=== PATIENT | male | born 1960 | race Caucasian/White ===

== ENCOUNTER 2018-12-04 00:38 | Inpatient (IN) | payer MEDICARE ==
[~2018-12-04] VITALS: Ht 170.2 cm; Wt 106.3 kg
[~2018-12-04 00:38] MED LIST: ALLOPURINOL300 MG PO; ATIVAN1 MG PO; AZITHROMYCIN250 MG PO; BACLOFEN20 MG PO; HYDROCHLOROTHIA50 MG PO; HYDROCODON-ACE1 EAC8 PO; IBUPROFEN800 MG PO; LORAZEPAM1 MG PO; METOPROLOL SUC100 MG PO; MORPHINE SULFAT15 M1 PO; PHOSPHA 250 NE250 MG PO; PREDNISONE20 MG PO; PROAIR HFA8.5 GM INH; QUETIAPINE FUM300 MG PO; TRAZODONE HCL100 MG PO; VICODIN 5-3001 EACH PO
--- OUTSIDE RECORDS SUMMARY | 2018-12-04 00:40 | XMS ---
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 Bakari VISIT COUNT (12 MO.) Sabino Booth TOTAL 1 NOTE: Visits indicate total known visits. ED/UCC VISIT TRACKING (12 MO.) 12/04/2018 00:[address] [facility] OR TYPE: Emergency COMPLAINT: - SOB INPATIENT VISIT TRACKING (12 MO.) No inpatient visits to display in this time frame [email or web address]
[2018-12-04] MEDS ORDERED: VITAMIN D31000 UNIT PO (00:48)
[2018-12-04] MEDS ORDERED: GABAPENTIN300 MG PO (01:44)
[2018-12-04] MEDS ORDERED: VENTOLIN HFA18 GM INH (01:48)
--- NOTE | 2018-12-04 03:27 | NUR ---
PT ARRIVES TO ICU ROOM 130, STANDS AND TRANSFERS SELF TO BED FROM [facility], STEADY ON FEET. RESP LABORED, RR 24, SPO2 85% ON 3L, TURNED UP TO 4L AND CFG434%. PT ANXIOUS, REQUESTING ADDITIONAL ATIVAN. DENIES PAIN. REQUESTS NICOTINE PATCH.
--- NOTE | 2018-12-04 03:43 | NUR ---
RT IN TO DO ADARSH MCKENNA.
--- NOTE | 2018-12-04 04:02 | NUR ---
PT VERY ANXIOUS WHEN STAFF IN ROOM, REQUESTING ATIVAN. WHEN STAFF LEAVE HE IS ABLE TO LIE DOWN IN BED AND RELAX A BIT.
--- NOTE | 2018-12-04 04:38 | NUR ---
CALL TO DR CALVO, ORDER GIVEN FOR ATIVAN 1 MG PO AND PTS REGULAR TRAZADONE AND SEROQUEL. PT CONT TO BE RESTLESS AND SITTING AT EDGE OF BED ROCKING BACK AND FORTH.
--- NOTE | 2018-12-04 05:15 | NUR ---
PT GIVEN HIS TRAZADNE, SEROQUEL AND ATIVAN. LYING BACK IN BED NOW, APPEARS MORE CALM. IS DIAPHORETIC, MONITOR LEADS NOT STICKING. WANTS O2 TURNED UP, SPO2 95% NC/5L, O2 UP O 6L. RESP LESS LABORED NOW THAT PT IS RELAXING. WAS ABLE TO VOID 400 ML INTO URINAL.
--- NOTE | 2018-12-04 07:00 | NUR ---
PT HAS HAD INCREASING ANXIETY, SITTING UP AT BEDSIDE THEN TO CHAIR THEN BACK, ROCKING BACK AND FORTH. UNABLE TO KEEP BP CUFF ON, SKIN IS DIAPHORETIC AND LEADS NOT STICKING TO SKIN, PULLING OFF SPO2 MONITOR AND O2. PT ENCOURAGED TO TRY TO RELAX AND LIE BACK IN BED AND FOCUS ON BREATHING BUT UNABLE TO LIE BACK FOR MORE THAN 10 SECONDS. LUNGS HAVE EXP WHEEZES THROUGHOUT. RT CALLED TO COME AND DO NEB TX. IV DILAUDID WAS GIVEN AND PT INSTANTLY STATES "OH THAT HIT THE SPOT" AFTER DILAUDID GIVEN PT WAS ABLE TO LIE BACK IN BED AND REST WITH EYES CLOSED. RESP REMAINED VERY LABORED WITH RETRACTIONS, RR 32. O2 REQUIREMENTS HAVE INCREASED FROM 3L/NC ON ARRIVAL TO UNIT NOW TO 10L OXYMASK SPO2 92%. CALL TO DR CALVO TO UPDATE, STATES HE WILL BE IN TO SEE PT SOON.
--- NOTE | 2018-12-04 07:53 | EKG ---
[facility] [address] [facility] [place] [address] Signed Normal sinus rhythm Incomplete right bundle branch block Nonspecific ST abnormality Abnormal ECG When compared with ECG of 21-JUN-2016 13:10, premature ventricular complexes are no longer present Incomplete right bundle branch block is now present Confirmed by VIKTORIYA CALVO MD ([id number]) on 12/04/2018 7:53:39 AM Electronically Signed By: VIKTORIYA CALVO MD 12/04/18 0753 PATIENT NAME: DOREEN TELLO Electrocardiogram DATE OF : 62 PHYSICIAN: VIKTORIYA CALVO MD REPORT #: [id number] REPORT IS CONFIDENTIAL AND NOT TO BE RELEASED WITHOUT AUTHORIZATION
--- NOTE | 2018-12-04 08:01 | NUR ---
PT STATES EFFECTS OF DILAUDID WEARING OFF, BELIEVES HE IS GOING THROUGH WITHDRAWAL FROM NOT HAVING HIS CHRONIC PAIN MEDS. STARTING TO HAVE INCREASED ANXIETY AND RESTLESSNESS AGAIN, PERIODICALLY PULLING O2 OFF, TRYING TO CLIMB OUT OF BED THEN LAYING BACK AGAIN TO REST WITH EYES CLOSED. STATES NEB TX DID HELP A BIT, SATS DID IMPROVE AFTER NEB TX SLIGHTLY.
--- NOTE | 2018-12-04 08:32 | NUR ---
IV SITE INTACT, NO REDNESS OR SWELLING NOTED, FLUSHES EASILY. PT DENIES NAUSEA AND SOB AT THIS TIME. PT REPORTS SEVERE ANXIETY. PT REQUESTS "THE GOOD DRUGS" PT STATES "IF I DON'T GET SOME DRUGS I'M GOING TO HAVE TO LEAVE". PT NOT ABLE TO KEEP SATS UP WITHOUT SUPPLIMENTAL O2, FREQUENTLY TAKES OFF OXYMASK. PT IS CURRENTLY SITTING UP AT THE SIDE OF THE BED ROCKING BACK AND FORTH, HAS A DIFFICULT TIME FOLLOWING DIRECTION TO KEEP OXYMASK ON.
--- NOTE | 2018-12-04 08:50 | NUR ---
IN ROOM TO EXAMINE PT AT THIS TIME. PT HAS NASAL CANULA IN PLACE WITH 4L O2, SAT IS 87%. PT REPORTS DIFFICULTY/INABILITY TO SURYA OXYMASK DUE TO ANXIETY. PT REPORTS "ONLY 2 MG ATIVAN WORKS FOR ME, IF YOU JUST GIVE ME 1 MG IT MAKES ME MEAN".
--- NOTE | 2018-12-04 11:55 | NUR ---
PT UP TO THE BEDSIDE COMMODE, IMPULSIVE WHEN GETTING OUT OF BED. PT HAS DIFFICULTY FOLLOWING DIRECTIONS. PT IS ONE PERSON ASSIST TO BEDSIDE COMMODE. PT ABLE TO VOID AND HAVE A BM. PT THEN BACK TO BED WITH BIPAP REPLACED. PT ACCIDENTALLY PULLED IV SITE IN RT HAND. NEW IV PLACED IN RT AC, SOME OF CATH IS EXPOSED PT HAS VALVES BLOCKING ADVANCEMENT, BLOOD RETURN EASILY OBTAINED, FLUSHES EASILY. PT DENIES PAIN AT THE SITE.
--- NOTE | 2018-12-04 13:41 | NUR ---
PT RESTING WITH BI-PAP. JOSÉ ELDER STATED SHE PREFERRED I NOT WAKE HIM. WILL CONTINUE TO FOLLOW NEEDE
--- NOTE | 2018-12-04 13:43 | NUR ---
PT MOVED TO ROOM 128 FOR CLOSER SUPERVISION.
--- NOTE | 2018-12-04 15:05 | NUR ---
PT UP TO THE BEDSIDE COMMODE TO HAVE A BM. PT OFF BIPAP FOR THIS, ON NC 4L 02, SATS DOWN TO 77% WITH PHYSICAL EXERTION, MOSTLY IN THE MID 80%'S.
--- NOTE | 2018-12-04 15:15 | NUR ---
PT ASSISTED TWO PERSON BACK TO BED. PT REFUSING BIPAP, RESISTS WEARING ANY FORM OF O2. EVENTUALLY CONVINCED PT TO WEAR 15 L OXYMASK. PT HAS DIFFICULTY REMEMBERING WHY THIS IS NEEDED.
--- NOTE | 2018-12-04 15:33 | NUR ---
PT REFUSING TO WEAR BIPAP AT THIS TIME. PT HAVING COUGHING FIT, ATTEMPTING TO EXPECTORATE. PT STATES "I CAN'T WEAR THAT IF I'M COUGHING". PT ABLE TO SURYA SIPS OF LIQUIDS. SURYA OXYMASK AT TIMES WITH 15 L 02, AT TIMES TAKES OFF AND STATES "WHAT IS THIS THING". PT NOT ORIENTED TO PLACE, EVENT OR FOLLOWING DIRECTIONS. PT IS ORIENTED TO NAME AND REQUESTING MORE ANXIETY MEDICATION.
--- NOTE | 2018-12-04 15:57 | NUR ---
UPDATED ON PT STATUS OF NON-TOLERANCE OF BIPAP AND ANXIETY. ORDER GIVEN FOR CT OF CHEST, AND SWITCH TO VAPO-THERM.
--- NOTE | 2018-12-04 16:35 | NUR ---
PT LEFT CCU TO GO TO IMAGING DEPARTMENT FOR CT OF CHEST. NURSE JERROD WENT WITH PT. PT SURYA 6L VIA OXYMASK, O2 SATS ARE 92-95%.
--- NOTE | 2018-12-04 16:58 | NUR ---
PT BACK TO ROOM FROM IMAGING DEPARTMENT.
--- NOTE | 2018-12-04 17:29 | NUR ---
CALLED TO UPDATE ON FAILURE OF CONTRAST FOR CT. IV SITE IN PT UPPER LEFT ARM INFILTRATED. ORDER GIVEN TO PUT IN A PICC LINE CONSULT FOR TODAY, OR TO ATTEMPT AN IV SITE IN PT LOWER LEG.
--- NOTE | 2018-12-04 17:43 | NUR ---
RECIEVED MESSAGE FROM STAFF VOICING CONCERN ABOUT THE PT MOTHER THE PT IS HER CAREGIVER. I CALLED HER NUMBER AND LEFT A MESSAGE NO ONE ANSWERED. PT MOTHER CALLED BACK IN A FEW MINUTES, STATING THAT SHE IS SAFE AND CAPABLE OF GOING TO BATHROOM, GETTING MEALS FOR HERSELF, KEEPING HERSELF WARM WHILE DOREEN IS HERE IN THE HOSPITAL. SHE STATES THAT SHE HAS SOMEONE TO CALL IF SHE NEEDS HELP AND THAT SHE IS SAFE WHILE DOREEN IS GONE. INFORMED NURSING STAFF AND QUALITY CONTROL DIRECTOR OF THIS.
--- NOTE | 2018-12-04 18:37 | NUR ---
PT GIVEN NEB TREATMENT PER REQUEST. PT CONFUSION NOT CHANGING, PT IS FOLLOWING MOST COMMANDS.
--- NOTE | 2018-12-04 18:40 | NUR ---
PT UP TO BEDSIDE COMMODE ABLE TO VOID. TWO PERSON ASSIST TO BED.
--- NOTE | 2018-12-04 18:49 | NUR ---
LARGE ENOUGH IV ACCESS NOT OBTAINED, CALLED TO UPDATE, CHEST CT TO BE POSTPONED UNTIL TOMORROW WAITING FOR PICC LINE PLACEMENT.
--- NOTE | 2018-12-04 19:30 | NUR ---
PT RESTING IN BED WITH EYES CLOSED. RESP LABORED. SPO2 95% ON OXYMASK 7L.
--- NOTE | 2018-12-04 20:15 | NUR ---
PT AWAKENS, ASKING FOR MEDS, ATTEMPTING TO CLIMB OUT OF BED. REORIENTED PT, HE SEEMS FAIRLY ORIENTED AT THIS TIME ALTHOUGH HE IS FORGETFUL, NOT REMEMBERING THAT WE TOLD HIM HIS MOTHER HAS BEEN CONTACTED ALREADY, ETC. ASSESSMENT DONE. LUNGS WITH WHEEZE THROUGHOUT, RESP VERY LABORED ESPECIALLY NOW THAT PT IS AWAKE AND STARTING TO GET ANXIOUS, SITTING UP AND DOWN. TAKING OXYMASK OFF. AT ONE POINT SPO2 DOWN TO 70% ON ROOM AIR. RT IN AND DID NEB TX AND PLACED VAPOTHERM 30L, 60% FIO2 AND SPO2 UP TO 90%. RR 26, HR 90'S. HS MEDS GIVEN WITH PRN ATIVAN AND NORCO. AFTER TAKING MEDS PT RELAXES BACK IN BED AND IS RESTFUL. BED ALARM ON.
--- NOTE | 2018-12-04 21:25 | NUR ---
NEW IV STARTED IN LEFT FOREARM.
--- NOTE | 2018-12-04 21:27 | NUR ---
PT AWAKENS, ASKING FOR MEDS. ASSESSMENT DONE. LUNGS WITH WHEEZE THROUGHOUT, RESP VERY LABORED ESPECIALLY NOW THAT PT IS AWAKE AND STARTING TO GET ANXIOUS, SITTING UP AND DOWN MORE, TAKING OXYMASK OFF. HS MEDS GIVEN WITH PRN ATIVAN AND NORCO. RT IN TO DO NEB TX. AFTER TAKING MEDS PT RELAXES BACK IN BED TO REST. VAPOTHERM ALSO SET UP BY RT, 30L 60 FIO2 AND SPO2 UP TO 90%.RR 26. HR 90'S. BED ALARM ON.
--- NOTE | 2018-12-04 22:32 | NUR ---
PT RESTFUL, SPO2 92% CONT ON VAPOTHEM 30L 60%.
--- NOTE | 2018-12-04 23:30 | NUR ---
PT AWAKENS TO VOID AT BEDISDE. VERY ANXIOUS, TEARING O2 OFF. STATES HE CANNOT URINATE WHILE WEARING O2. WANTING TO GET UP AND WALK AROUND ROOM, PT CONVINCED TO LIE BACK IN BED AND TRY TO REST AND REPLACE VAPOTHERM. SATS HAD BEEN LOW WHILE RT IN TO DO NEB TX, TURNED FIO2 UP TO 70%.
--- NOTE | 2018-12-05 02:31 | NUR ---
PT HAS BEEN RESTFUL THE LAST 2 HOURS. WEARING VAPOTHERM SPO2 95%.
--- NOTE | 2018-12-05 04:09 | NUR ---
PT AWAKENS TO VOID AT BEDSIDE. HAS BEEN ABLE TO SLEEP FOR FOUR HOURS NOW. AFTER VOIDING AND GETTING REPOSITIONED BACK IN BED PT C/O FEELING SOB, SPO2 87-89% ON VAPOTHERM, RT CALLED TO COME DO ADARSH MCKENNA.
--- NOTE | 2018-12-05 08:47 | NUR ---
PATIENT APPEARS TO BE LESS CONFUSED COMPARED TO PREVIOUS DAY. PATEINT WAS ABLE TO AMBULATE WITH STAND BY ASSIST FROM BED TO THE CHAIR. PATIENT STATED HE NEEDED TO GET INTO CONTACT WITH HIS MOTHER STATING HE HADNT SPOKEN WITH HER IN A COUPLE DAYS. PATIENT WAS REMINDED HE SPOKE WITH HIS MOTHER LAST NIGHT, ALSO LET PATIENT KNOW SHE HAD BEEN CONTACTED BY THE DISCHARGE NURSE. PATIENT WAS EXTREMELY QUIET AND DID NOT APPEAR ANXIOUS YESTERDAY. AFTER REQUESTING ATIVAN PATIENT WAS TOLD IT WOULD BE A FEW MORE HOURS. PATIENT THEN STATED "THATS OKAY, I DONT FEEL LIKE I NEED IT RIGHT NOW ANYWAY". PATIENT DOES NOT APPEAR TO BE IN DISCOMFORT. PATIENT HAD NO OTHER COMPLAINTS AT THIS TIME.
--- NOTE | 2018-12-05 09:03 | NUR ---
PT SITTING UP IN CHAIR EATING BREAKFAST AT THIS TIME. PT ABLE TO FEED SELF. WATCHING TV WELL, IS ABLE TO USE CALL LIGHT AND TV REMOTE ON HIS OWN.
--- NOTE | 2018-12-05 09:29 | NUR ---
PATIENT FINISHED HIS ENTIRE BREAKFAST. AFTER BREAKFAST PATIENT ASKED FOR A TOOTHPICK. PATIENT INFORMED WE DONT HAVE ANY OFFERED A TOOTHBRUSH AND A HOT WASHCLOTH. PATIENT BRUSHED HIS TEETH AND WIPED HIS FACE OFF. PATIENT WAS VERY THANKFUL AND SAID HE FELT BETTER. PATIENT REQUESTED THE BLINDS BE PULLED DOWN AND THE CURTAIN DRAWN SO HE COULD TAKE A NAP. PATIENT CALLED HIS MOTHER TO SPEAK WITH HER BEFORE GOING TO SLEEP.
--- NOTE | 2018-12-05 11:16 | NUR ---
PATIENT CALLED TO NURSES STATION AT 1030 FOR HIS ATIVAN. PATIENT WAS CALM AND DID NOT APPEAR ANXIOUS AT THE TIME. AFTER RECIEVING MEDICATIONS PATIENT THEN STATED HE NEED TO URINATE. PATIENT VOIDED AND THEN INFORMED ME HE WOULD LIKE TO BE MOVED TO THE BED. PATIENT WAS ABLE TO STAND AND AMBULATE WITHOUT ASSISTANCE FROM THE CHAIR TO THE BED. PATIENT WAS ABLE TO POSITION HIMSELF ON THE BED TO A POSITION OF COMFORT. PATIENT HAD NO OTHER COMPLAINTS AT THIS TIME.
--- NOTE | 2018-12-05 11:19 | NUR ---
IN TO SEE PT. PT AWAKE AND ALERT, ABLE TO ANSWER QUESTIONS AND TAKE PART IN THE DISCUSSION OF HIS CARE PLAN. PT REPORTS ANXIETY HAS IMPORVED.
--- NOTE | 2018-12-05 16:52 | NUR ---
PATIENT COMPLAINING OF ANXIETY. STATED THAT THE ATIVAN DID NOT HELP THAT MUCH THIS TIME AND WANTED TO KNOW WHAT ELSE COULD BE DONE. PATIENT WAS GIVEN ALTERNATIVE STRATEGIES SUCH DEEP BREATHING AND MEDITATION. PATEINT WAS TAKEN FOR A WALK AND THEN GIVEN A SHOWER. AFTER SHOWER PATIENT RETURNED TO BED AND QUICKLY FELL ASLEEP. PATIENT APPEARS COMFORTABLE. PATEINT HAS REQUIRED FREQUENT REORIENTATION TO MEDICATION SCHEDULE. GETS AGITATED WHEN REMINDED MEDIATIONS WILL NOT BE GIVEN UNTIL THE EVENING. AT TIMES PATIENT IS DISORIENTED TO TIME OF DAY. PATIENT FREQUENTLY REQUESTS BLINDS TO BE CLOSED. ATTEMPTED TO KEEP BLIND OPEN BY ENCOURAGING PATIENT ABOUT THE POSITIVE EFFECTS OF SUNLIGHT. PATIENT STATES KEEPING THE BLINDS OPEN GIVE HIM A HEADACHE.
--- NOTE | 2018-12-05 17:14 | NUR ---
PT STATES HE WANTS TO LEAVE AMA. CALLED TO UPDATE. STATES HE WILL COME SEE THE PT IN 30 MINUTES. PT INFORMED THAT WILL BE HERE TO SEE HIM IN 30, PT AGREABLE TO WAIT TO TALK TO FOR 30 MIN.
--- NOTE | 2018-12-05 18:00 | NUR ---
IN TO VISIT WITH THE PT. ADJUSTING MEDICATIONS. PT AGREES TO STAY IN THE HOSPITAL.
--- NOTE | 2018-12-05 18:17 | NUR ---
PT GIVEN TRAZIDONE AND SERIQUIL. PT ABLE TO EAT SOME BITES OF DINNER.
--- NOTE | 2018-12-05 19:35 | NUR ---
REPORT RECEIVED FROM JOSÉ ELDER AND SN JESSIE. PT WAS SLEEPING AND IS NOW AWAKE REQUESTING HIS PAIN AND ANXIETY MEDICATIONS. 7L OXYMASK IN PLACE. 2MG IV ATIVAN ADMINISTERED. DISCUSSED WITH PT THAT I WOULD BRING IN ALL HIS OTHER MEDICATIONS AT 1999, PT IS AGREEABLE TO THIS. FRESH WATER PROVIDED. PT DENIES FURTHER REQUESTS AT THIS TIME.
--- NOTE | 2018-12-05 20:05 | NUR ---
SCHEDULED MEDICATIONS GIVEN PER ORDERS. PRN NORCO ADMINISTERED FOR 5/10 FOOT PAIN. PRN ROBITUSSIN GIVEN FOR COUGH. PRN NICOTINE LOZENGE GIVEN PER REQUEST. R.T. IN ROOM TO ASSESS AND ADMINSITERED SCHEDULED NEB. CALL LIGHT WITHIN REACH.
--- NOTE | 2018-12-05 20:30 | NUR ---
ASSESSMENT COMPLETED. PT IS ALERT/ORIENTED, THOUGH HE IS FORGETFUL AND REQUIRES RE-ORIENTATION AT TIMES. LUNGS CLEAR, DIM IN BASES, 7L O2 VIA OXYMASK IN PLACE. HR REGULAR, TACHY 100-110, SCHEDULED METOPROLOL GIVEN. BOWEL TONES ACTIVE, DENIES NAUSEA. SKIN APPEARS GROSSLY INTACT. IV SITES X3 PATENT AND SL, DRESSINGS INTACT. PT UP TO BATHROOM, NO ASSISTANCE REQUIRED. VOIDED X1. PT THEN AMBULATED AROUND ROOM WITHOUT ASSISTANCE. TOLERATED WELL, SPO2>90%, TACHYPNIC RR:24. PT NOW BACK IN BED, CALL LIGHT WITHIN REACH. FRESH WATER AND WARM BLANKETS PROVIDED PER REQUEST. DROPLET PRECAUTIONS IN PLACE.
--- NOTE | 2018-12-05 21:26 | NUR ---
PT CALLED TO REQUEST A NICOTINE LOZENGE, PROVIDED. PT ALSO ASKED FOR ATIVAN AND NORCO, EXPLAINED TO HIM THAT IT IS NOT TIME YET, PT IS UNDERSTANDING AND AGREEABLE AT THIS TIME. NO FURTHER REQUESTS, CALL LIGHT WITHIN REACH.
--- NOTE | 2018-12-06 | NUR ---
PT SLEEPING AT THIS TIME, NO APPARENT DISTRESS. RESPIRATIONS EVEN AND UNLABORED, RR:20, SPO2:94% ON 7L OXYMASK. HR:78. WILL ALLOW FOR REST AND CONTINUE TO MONITOR. CALL LIGHT WITHIN REACH.
--- NOTE | 2018-12-06 01:49 | NUR ---
PT AWOKE AND REQUESTED PAIN AND ANXIETY MEDICATION. 1 TAB NORCO AND 2MG IV ATIVAN ADMINISTERED. PT HAVING DIFFICULT TIME KEEPING OXYMASK ON, SWITCHED HIM TO 6L NC AT THIS TIME. LUNGS REMAIN CLEAR/DIM. HR REGULAR. BOWEL TONES ACTIVE, DENIES NAUSEA. CALL LIGHT WITHIN REACH.
--- NOTE | 2018-12-06 02:00 | NUR ---
PT CALLED AND REQUESTED COUGH MEDICINE AND A NICOTINE LOZENGE, BOTH PROVIDED. NO FURTHER REQUESTS AT THIS TIME. CALL LIGHT WITHIN REACH.
--- NOTE | 2018-12-06 02:39 | NUR ---
PT UP TO SIDE OF BED TO USE URINAL, VOIDED 525ML AND RETURNED TO BED. PT ASKS WHEN HE CAN HAVE HIS MEDICATIONS AGAIN, REMINDED HIM THAT HE JUST HAD THEM AT 0200 AND WILL HAVE TO WAIT. PT STATES UNDERSTANDING AND IS AGREEABLE. NO FURTHER REQUESTS AT THIS TIME.
--- NOTE | 2018-12-06 05:26 | NUR ---
PT CALLED TO REQUEST PAIN AND ANXIETY MEDICATIONS, INFORMED HIM THAT IT IS NOT YET TIME FOR NORCO OR ATIVAN, PT AGREEABLE TO TRYING MOTRIN, ADMINISTERED FOR 10/10 BACK AND GENERALIZED PAIN. ASSESSMENT COMPLETED, NO OTHER CHANGES FROM PREVEIOUS ASSESSMENT. 6L O2 VIA NC REMAINS IN PLACE. CALL LIGHT WITHIN REACH, NO FURTHER REQUESTS AT THIS TIME.
--- NOTE | 2018-12-06 06:00 | NUR ---
PT GIVEN PRN ATIVAN, ROBITUSSIN, AND NICOTINE LOZENGE PER REQUEST. PT SITTING UP IN BED, STATED HE FEELS SOB. R.T. IN TO GIVE NEB AT THIS TIME. RR:24, SPO2: 90% ON 6L NC, HR:90.
--- NOTE | 2018-12-06 06:15 | NUR ---
R.T. ADDED HUMIDIFICATION TO NASAL CANNULA.
--- NOTE | 2018-12-06 06:43 | NUR ---
OXYGEN SWITCHED TO OXYMASK AND TITRATED UP TO 8L FOR DESATURATION DOWN TO 83-85%. SPO2 NOW 91%. WILL CONTINUE TO MONITOR.
--- NOTE | 2018-12-06 08:15 | NUR ---
PT OXYGEN TURNED DOWN TO 2L VIA OXY MASK.
--- NOTE | 2018-12-06 08:21 | NUR ---
PT OXYGEN SAT IS 95% ON 2L VIA OXYMASK.
[2018-12-06] MEDS ORDERED: NICORETTE4 M2 BUCCAL (09:07)
[2018-12-06] MEDS ORDERED: TAMIFLU75 MG PO (09:07)
[2018-12-06] MEDS ORDERED: ALBUTEROL2.5 MG/3 M INH (09:09)
[2018-12-06] MEDS ORDERED: PREDNISONE20 MG PO (09:11)
--- NOTE | 2018-12-06 09:23 | NUR ---
ASSISTED THE RESPIRATORY THERAPIST WITH STANDING PATIENT ON ROOM AIR TO EVALUATE OXYGEN NEED. DURING THE EVALUATION PATIENT STARTED TO LOOK AROUND THE ROOM. WHEN ASKED WHAT HE WAS LOOKING FOR PATIENT STATED HE WAS LOOKING FOR HIS COPENHAGEN. IN PATIENTS BED IT DID APPEAR IF HE HAD SPILLED SOME COPENHAGEN IN HIS SHEET. PATIENT THEN STATED HE WAS HIDING IT IN HIS CHIP BAG. WHEN LOOKING AROUND THE ROOM THE TRASH CANS HAD BEEN EMPTIED AND IT APPEARS TO HAVE BEEN THROWN AWAY. PATIENT HAS ALSO BEEN ASKING TO HAVE HIS "HOSES REMOVED". PATIENT INFORMED THAT THE IV'S WOULD BE REMOVED WHEN HE WAS READY FOR DISCARGE.
--- NOTE | 2018-12-06 10:05 | NUR ---
PT LEFT THE UNIT TO GO HOME VIA WHEELCHAIR, STUDENT NURSE TRANSPORTING PT TO THE LOBBY. PT HAS ALL PERSONAL BELONGINGS WITH HIM. ALL IV SITES REMOVED. PT ALERT AND ORIENTED X4 TO BASELINE.
--- NOTE | 2018-12-07 10:52 | NUR ---
FAXED CHART NOTES INCLUDING FACE SHEET, HOME O2 QUALIFIER, H AND P, DC SUMMARY AND PACKET TO [facility]. RECIEVED FAX CONFIRMATION AND TALKED WITH MIRIAN FROM [facility]. SHE STATED THAT PT GOT SET UP WITH O2 AT HOME
== END 2018-12-06 10:05 | disposition home or self-care (01) | DRG 193 ==
LOC: ED 00:38 → CCU 00:39
PROVIDERS: ADMIT Internal Medicine
DX: J10.1 Influenza due to other identified influenza virus with other respiratory manifestations (principal); J96.21 Acute and chronic respiratory failure with hypoxia; J96.22 Acute and chronic respiratory failure with hypercapnia; J44.1 Chronic obstructive pulmonary disease with (acute) exacerbation; I10 Essential (primary) hypertension; G89.4 Chronic pain syndrome; M54.9 Dorsalgia, unspecified; F31.9 Bipolar disorder, unspecified; F17.210 Nicotine dependence, cigarettes, uncomplicated; J98.01 Acute bronchospasm; E79.0 Hyperuricemia without signs of inflammatory arthritis and tophaceous disease; F41.8 Other specified anxiety disorders; E87.6 Hypokalemia; T50.2X5A Adverse effect of carbonic-anhydrase inhibitors, benzothiadiazides and other diuretics, initial encounter; Z76.5 Malingerer [conscious simulation]; Z79.1 Long term (current) use of non-steroidal anti-inflammatories (NSAID); Z79.891 Long term (current) use of opiate analgesic; Z79.899 Other long term (current) drug therapy
CPT/HCPCS: 36415; 36600; 71045; 80048; 80053; 82803; 83605; 83735; 83880; 84484; 85025; 85610; 85730; 87502; 93005; 93010; 94640; 94644; 94660; 94761; 94799; 96365; 96367; 96375; 96376; 99285-25; 99406; G0378; J0696; J1170; J1650; J2060; J2930; J3480; J7120

== ENCOUNTER 2019-07-12 11:49 | Emergency (ER) | payer MEDICARE ==
[~2019-07-12] VITALS: Ht 170.2 cm; Wt 113.4 kg
--- OUTSIDE RECORDS SUMMARY | ~2019-07-12 | XMS | Clinical Summary ---
Demographics + + + | Address | [address] | | | [place] [address] | + + + | Home Phone | | + + + | Preferred Language | Unknown | + + + | Marital Status | | + + + | Hoahaoism Affiliation | 1027 | + + + | Race | Unknown | + + + | Ethnic Group | Unknown | + + + Author + + + | Author | [facility] | | | and [place] | + + + | Organization | [facility] | | | and [place] | + + + | Address | Unknown | + + + | Phone | Unavailable | + + + Care Team Providers + +------+ + | Care Kitchen Clerk Name | Role | Phone | + +------+ + | Tessy Farias MD | | + +------+ + Allergies Not on File Medications + + + +---------+------+------+-------+ | Medication | Sig | Dispensed | Refills | Star | End | Statu | | | | | | t | Date | s | | | | | | Date | | | + + + +---------+------+------+-------+ | baclofen | Take 20 mg by mouth | | 0 | | | Activ | | (LIORESAL) 20 mg | 2 times daily. | | | | | e | | tablet | | | | | | | + + + +---------+------+------+-------+ | | Take 12.5 mg by | | 0 | 09/1 | | Activ | | hydroCHLOROthiazide | mouth Daily. | | | 6/20 | | e | | (HYDRODIURIL) 12.5 | | | | 16 | | | | MG tablet | | | | | | | + + + +---------+------+------+-------+ | | Take 1 tablet by | | 0 | | | Activ | | HYDROcodone-acetamin | mouth every 4 hours | | | | | e | | ophen (NORCO) 10-325 | as needed. | | | | | | | mg per tablet | | | | | | | + + + +---------+------+------+-------+ | metoprolol | Take 100 mg by mouth | | 0 | | | Activ | | succinate | Daily. | | | | | e | | (TOPROL-XL) 100 mg | | | | | | | | ER tablet | | | | | | | + + + +---------+------+------+-------+ | morphine (MSIR) 15 | Take 15 mg by mouth | | 0 | | | Activ | | mg tablet | 2 times daily. | | | | | e | + + + +---------+------+------+-------+ | potassium chloride | Take 40 mEq by mouth | | 0 | 09/1 | | Activ | | (KLOR-CON M20) 20 | 2 times daily. | | | 6/20 | | e | | mEq ER tablet | | | | 16 | | | + + + +---------+------+------+-------+ | QUEtiapine | Take 300 mg by mouth | | 0 | 06/13 | | Activ | | (SEROQUEL) 300 mg | nightly. | | | 04/01 | | e | | tablet | | | | 16 | | | + + + +---------+------+------+-------+ | traZODone | Take 200 mg by mouth | | 0 | | | Activ | | (DESYREL) 100 mg | nightly. | | | | | e | | tablet | | | | | | | + + + +---------+------+------+-------+ Active Problems + + + | Problem | Noted Date | + + + | Hypoalbuminemia | 07/05/2016 | + + + | Hypokalemia | 07/05/2016 | + + + | Hypophosphatemia | 07/05/2016 | + + + | Altered mental status | 06/21/2016 | + + + | Essential hypertension, benign | 06/21/2016 | + + + | Gout, unspecified | 06/21/2016 | + + + | Hypercalcemia | 06/21/2016 | + + + | Leukocytosis | 06/21/2016 | + + + | Smoking | 06/21/2016 | + + + | Crohn's colitis | 06/05/2016 | + + + | Diarrhea | 05/27/2016 | + + + | Acute respiratory failure with hypoxia | 05/24/2016 | + + + | Debility | 05/24/2016 | + + + | E. coli pneumonia | 05/23/2016 | + + + | Pneumonia of both lower lobes due to methicillin resistant | 05/23/2016 | | Staphylococcus aureus (MRSA) | | + + + | Alcohol abuse | 05/22/2016 | + + + | Hyperosmolality and/or hypernatremia | 05/22/2016 | + + + | Acute kidney injury | 05/18/2016 | + + + | Metabolic encephalopathy | 05/18/2016 | + + + | Polysubstance abuse | 05/18/2016 | + + + | Rhabdomyolysis | 05/18/2016 | + + + | Transaminitis | 05/18/2016 | + + + Resolved Problems + + + + | Problem | Noted | Resolved | | | Date | Date | + + + + | Moderate protein-calorie malnutrition | 05/21/20 | | | | 16 | 9 | + + + + Encounters +--------+ + + + + | Date | Type | Specialty | Care Team | Description | +--------+ + + + + | 07/09/ | Abstract | Gastroenterology | Provider, | | | 2018 | | | MD Kailey | | +--------+ + + + + from Last 3 Months Immunizations + + + + | Name | Dates Previously Given | Next Due | + + + + | HEP A, 2 DOSE | 06/05/2016 | | | (ADULT) | | | + + + + | Hep B (PED/ADOL) 3 | 06/05/2016 | | | DOSE | | | + + + + | PNEUMOCOCCAL | 05/20/2016 | | | POLYSACCHARIDE | | | | 23-VALENT (PPSV23) | | | + + + + Social History + +-------+ +--------+------+ | Tobacco Use | Types | Packs/Day | Years | Date | | | | | Used | | + +-------+ +--------+------+ | Current Every Day | | 2.5 | | | | Smoker | | | | | + +-------+ +--------+------+ + + | Comments: discussed with pt's daughter | + + + + + | Sex Assigned at | Date Recorded | | | | + + + | Not on file | | + + + + + + + | Job Start Date | Occupation | Industry | + + + + | Not on file | Not on file | Not on file | + + + + + + + + | Travel History | Travel Start | Travel End | + + + + + + | No recent travel history available. | + + Last Filed Vital Signs + + + + | Vital Sign | Reading | Time Taken | + + + + | Blood Pressure | 144/90 | 06/28/20161109 PDT | + + + + | Pulse | 79 | 06/28/20161109 PDT | + + + + | Temperature | 36.6 C (97.9 F) | 06/28/20161109 PDT | + + + + | Respiratory Rate | 18 | 06/28/20161109 PDT | + + + + | Oxygen Saturation | - | - | + + + + | Inhaled Oxygen | - | - | | Concentration | | | + + + + | Weight | 96.2 kg (212 lb) | 06/28/20161109 PDT | + + + + | Height | 177.8 cm (5' 10") | 06/28/20161109 PDT | + + + + | Body Mass Index | 30.42 | 06/28/20161109 PDT | + + + + Plan of Treatment +--------+---------+ + + + | Date | Type | Specialty | Care Team | Description | +--------+---------+ + + + | 07/19/ | Office | Gastroenterology | Freddy Mccrary | | | 2019 | Visit | | MD [address] | | | | | | [address] | | | | | | [place] [address] | | | | | | [phone] | | | | | | | | +--------+---------+ + + + + + + + + | Health Maintenance | Due Date | Last Done | Comments | + + + + + | Vaccine: | | | | | Dtap/Tdap/Td (1 - | 0 | | | | Tdap) | | | | + + + + + | Vaccine: Zoster (1 | | | | | of 2) | 1 | | | + + + + + | Vaccine: Influenza | | | | | (#1) | 9 | | | + + + + + | Adult Annual | | | | | Wellness Visit | 9 | | | + + + + + | Colorectal Cancer | | 06/02/2016 | | | Screening | 6 | | | | (Colonoscopy) | | | | + + + + + | Vaccine: | Completed | 05/20/2016 | | | Pneumococcal 19-64 | | | | | (PPSV23 only) Medium | | | | | Risk | | | | + + + + + | Hepatitis C | Completed | 06/02/2016 | | | Screening | | | | + + + + + Results Not on filefrom Last 3 Months Insurance + +--------+ +--------+ +---------+--------+ | Payer | Benefi | Subscriber | Effect | Phone | Address | Type | | | t Plan | ID | aminata | | | | | | / | | Dates | | | | | | Group | | | | | | + +--------+ +--------+ +---------+--------+ | MEDICARE | RAILRO | [id number] | 06/13/20 | [phone] | | Medica | | | AD | | 11-Pre | 5 | | re | | | MEDICA | | sent | | | | | | RE | | | | | | + +--------+ +--------+ +---------+--------+ + +--------+ +--------+ + + | Guarantor Name | Accoun | Relation to | Date | Phone | Billing Address | | | t Type | Patient | of | | | | | | | | | | + +--------+ +--------+ + + | Raza Hamm | Person | Self | [birth year] | | [address] | | | al/Fam | | 1960 | [phone] | [place] [address] | | | [place] | | | 3 (Home) | | + +--------+ +--------+ + + Advance Directives Patient has advance care planning documents on file. For more information, please contact:[facility] [place] [address]
--- OUTSIDE RECORDS SUMMARY | ~2019-07-12 | XMS | Encounter Summary ---
Demographics + + + | Address | [address] | | | [place] [address] | + + + | Home Phone | | + + + | Preferred Language | Unknown | + + + | Marital Status | | + + + | Jain Affiliation | 1027 | + + + | Race | Unknown | + + + | Ethnic Group | Unknown | + + + Author + + + | Author | [facility] | | | and [place] | + + + | Organization | [facility] | | | and [place] | + + + | Address | Unknown | + + + | Phone | Unavailable | + + + Care Team Providers + +------+ + | Care Physical Optics Teacher Name | Role | Phone | + +------+ + | Tessy Farias MD | | + +------+ + Encounter Details +--------+ + + + + | Date | Type | Department | Care Team | Description | +--------+ + + + + | 07/09/ | Abstract | [facility] | Won, | | | 2018 | | GASTROENTEROLOGY | MD Ka[address] | | | | | [address] | [address] | | | | | [address] [place], [place] | [place] [address] | | | | | [address] | | | | | | [phone] | | | +--------+ + + + [...] as of this encounter Plan of Treatment +--------+---------+ + + + | Date | Type | Specialty | Care Team | Description | +--------+---------+ + + + | 07/19/ | Office | Gastroenterology | Freddy Mccrary | | | 2019 | Visit | | MD [address] | | | | | | [address] | | | | | | [place] [address] | | | | | | [phone] | | | | | | | | +--------+---------+ + + + documented as of this encounter Procedures + +--------+ [...] + | Colonoscopy | See Full Report~ [facility] | | | | | | Dr. Bustamante | | | | | Impression, | | | | | | External | | | | | + + + + + + documented in this encounter Visit Diagnoses Not on filedocumented in this encounter"
--- OUTSIDE RECORDS SUMMARY | ~2019-07-12 | XMS | Encounter Summary ---
Demographics + + + | Address | [address] | | | [place] [address] | + + + | Home Phone | | + + + | Preferred Language | Unknown | + + + | Marital Status | | + + + | Congregation Affiliation | 1027 | + + + | Race | Unknown | + + + | Ethnic Group | Unknown | + + + Author + + + | Author | [facility] | | | and [place] | + + + | Organization | [facility] | | | and [place] | + + + | Address | Unknown | + + + | Phone | Unavailable | + + + Care Team Providers + +------+ + | Care Counter Sales Representative Name | Role | Phone | + +------+ + | Tessy Farias MD | | + +------+ + Encounter Details +--------+ + + + + | Date | Type | Department | Care Team | Description | +--------+ + + + + | 07/09/ | Abstract | [facility] | Won, | | | 2018 | | GASTROENTEROLOGY | MD Kailey [address] | | | | | [address] [facility] | [address] | | | | | [address] [place], [place] | [place] [address] | | | | | [address] | | | | | | [phone] | | | +--------+ + + + [...] | | | | | [place] [address] | | | | | | [phone] | | | | | | | [...]
--- OUTSIDE RECORDS SUMMARY | ~2019-07-12 | XMS | Clinical Summary ---
Demographics + + + | Address | [address] [address] | | | [place] [address] | + + + | Home Phone | | + + + | Preferred Language | Unknown | + + + | Marital Status | | + + + | Holiness Affiliation | 1027 | + + + | Race | Unknown | + + + | Ethnic Group | Unknown | + + + Author + + + | Author | [facility] (Historical as of | | | 05-29-19) | + + + | Organization | [facility] (Historical as of | | | 05-29-19) | + + + | Address | Unknown | + + + | Phone | Unavailable | + + + Support + + + + + | Name | Relationship | Address | Phone | + + + + + | Sallie Govea | ECON | [address] | | | | | [place] | | | | | [address] | | + + + + + Care Team Providers + +------+ + | Care News Producer Name | Role | Phone | + +------+ + | Douglas Muller DO | PP | | + [...] +------+-------+ + | MEDICARE | MEDICA | [id number] | | | [address] | | | RE | | | | [place] [address] | | | [place] | | | [...] | Self | [birth year] | Home: | [address] | | | al/Fam | | 1960 | [phone] | [place] [address] | | | [place] | | | [phone] | | + +--------+ +--------+ + +
--- OUTSIDE RECORDS SUMMARY | ~2019-07-12 | XMS | Clinical Summary ---
Demographics + + + | Address | [address] | | | [place] [address] | + + + | Home Phone | | + + + | Preferred Language | Unknown | + + + | Marital Status | | + + + | Latter Day Affiliation | 1027 | + + + | Race | Unknown | + + + | Ethnic Group | Unknown | + + + Author + + + | Author | [facility] (Historical as of | | | 05-29-19) | + + + | Organization | [facility] (Historical as of | | | 05-29-19) | + + + | Address | Unknown | + + + | Phone | Unavailable | + + + Support + + + + + | Name | Relationship | Address | Phone | + + + + + | Sallie Govea | ECON | [address] | | | | | [place] | | | | | [address] | | + + + + + Care Team Providers + +------+ + | Care Mobile Service Rv Technician Name | Role | Phone | + [...] +------+-------+ + | MEDICARE | MEDICA | [id number] | | | [address] | | | RE | | | | [place] [phone] | | | [place] | | | [...] | Self | [birth year] | Home: | [address] | | | al/Fam | | 1960 | [phone] | [place] [address] | | | [place] | | | [phone] | | + +--------+ +--------+ + +
--- OUTSIDE RECORDS SUMMARY | ~2019-07-12 | XMS | Clinical Summary ---
Demographics + + + | Address | [address] | | | [place] [address] | + + + | Home Phone | | + + + | Preferred Language | Unknown | + + + | Marital Status | | + + + | Buddhism Affiliation | 1027 | + + + | Race | Unknown | + + + | Ethnic Group | Unknown | + + + Author + + + | Author | [facility] | | | and [place] | + + + | Organization | [facility] | | | and [place] | + + + | Address | Unknown | + + + | Phone | Unavailable | + + + Care Team Providers + +------+ + | Care Die Inspector Name | Role | Phone | + [...] | | | | | [place] [address] | | | | | | [phone] | | | | | | | [...] +--------+ +---------+--------+ | MEDICARE | RAILRO | [id number] | 06/13/20 | [phone] | | Medica [...] Person | Self | [birth year] | | [address] | | | al/Fam | | 1960 | [phone] | [place] [address] | | | [place] | | | 3 (Home) | | + +--------+ +--------+ + + Advance Directives Patient has advance care planning documents on file. For more information, please contact:[facility] [place] [address]
[~2019-07-12 11:49] MED LIST changes: +ALBUTEROL2.5 MG/3 M INH; +GABAPENTIN300 MG PO; +NICORETTE4 M2 BUCCAL; +SEROQUEL200 MG PO; +TAMIFLU75 MG PO; +VENTOLIN HFA18 GM INH; +VITAMIN D31000 UNIT PO
--- OUTSIDE RECORDS SUMMARY | 2019-07-12 11:52 | XMS ---
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 Care History Medical/Surgical 05/13/2019 [facility] - [facility] IS UNABLE TO CONTACT PATIENT- LEFT VOICE MESSAGES. - PATIENT NEEDS A PCP- PLEASE PROVIDE [facility] CONTACT NUMBER IF PATIENT IS SEEN IN THE ED [phone]. Bakari VISIT COUNT (12 MO.) 3 BON Booth TOTAL 3 NOTE: Visits indicate total known visits. 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 - Crohn's disease, unspecified, without complications - Nicotine dependence, unspecified, uncomplicated 12/04/2018 00:38 [facility] [place] TYPE: Emergency COMPLAINT: - SOB INPATIENT VISIT TRACKING (12 MO.) 12/04/2018 09:11 [facility] [place] TYPE: Critical Care COMPLAINT: - COPD EXACERBATION DIAGNOSES: - Hypokalemia - 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 - Dorsalgia, unspecified - Other specified anxiety disorders - Influenza due to other identified influenza virus with other respiratory manifestations - Acute bronchospasm - care home (current) use of opiate analgesic - Chronic obstructive pulmonary disease with (acute) exacerbation - Influenza due to other identified influenza virus with other respiratory manifestations - Chronic pain syndrome - Adverse effect of carbonic-anhydrase inhibitors, benzothiadiazides and other diuretics, initial encounter - Nicotine dependence, cigarettes, uncomplicated - Essential (primary) hypertension - Hypokalemia - Acute bronchospasm - Chronic obstructive pulmonary disease with (acute) exacerbation - Bipolar disorder, unspecified - 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 - Acute and chronic respiratory failure with hypoxia - Malingerer [conscious simulation] - Essential (primary) hypertension - Shortness of breath - Chronic pain syndrome - Hyperuricemia without signs of inflammatory arthritis and tophaceous disease - Acute and chronic respiratory failure with hypercapnia - Bipolar disorder, unspecified - Acute and chronic respiratory failure with hypoxia - Nicotine dependence, cigarettes, uncomplicated - 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 of non-steroidal anti-inflammatories (NSAID) - 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
[2019-07-12] MEDS ORDERED: TRAZODONE HCL100 MG PO (12:40)
[2019-07-12] MEDS ORDERED: SEROQUEL100 MG PO (12:40)
== END 2019-07-12 12:52 | disposition home or self-care (01) ==
LOC: ED 11:49
DX: F31.9 Bipolar disorder, unspecified (principal); Z76.0 Encounter for issue of repeat prescription; J44.9 Chronic obstructive pulmonary disease, unspecified; F17.200 Nicotine dependence, unspecified, uncomplicated; Z79.899 Other long term (current) drug therapy; Z79.52 Long term (current) use of systemic steroids
CPT/HCPCS: 99281

== ENCOUNTER 2019-07-28 11:38 | Emergency (ER) | payer MEDICARE ==
[~2019-07-28] VITALS: Ht 170.2 cm; Wt 113.4 kg
--- OUTSIDE RECORDS SUMMARY | ~2019-07-28 | XMS | Clinical Summary ---
Demographics + + + | Address | [address] | | | [place] [address] | + + + | Home Phone | | + + + | Preferred Language | Unknown | + + + | Marital Status | | + + + | Anabaptist Affiliation | 1027 | + + + | Race | Unknown | + + + | Ethnic Group | Unknown | + + + Author + + + | Author | [facility] | | | and [place] | + + + | Organization | [facility] | | | and [place] | + + + | Address | Unknown | + + + | Phone | Unavailable | + + + Care Team Providers + +------+ + | Care Philosophy Specialist Name | Role | Phone | + [...] + + + + Plan of Treatment + + + + + | Health [...] +--------+ +---------+--------+ | MEDICARE | RAILRO | [id number] | 06/13/20 | [phone] | | Medica [...] Person | Self | [birth year] | | [address] | | | al/[place]a | | 1960 | [phone] | [place] [address] | | | [place] | | | 3 (Home) | | + +--------+ +--------+ + + Advance Directives Patient has advance care planning documents on file. For more information, please contact:[facility] [place] [address]
--- OUTSIDE RECORDS SUMMARY | ~2019-07-28 | XMS | Encounter Summary ---
Demographics + + + | Address | [address] | | | [place] [address] | + + + | Home Phone | | + + + | Preferred Language | Unknown | + + + | Marital Status | | + + + | Buddhism Affiliation | 1027 | + + + | Race | Unknown | + + + | Ethnic Group | Unknown | + + + Author + + + | Author | [facility] | | | and [place] | + + + | Organization | [facility] | | | and [place] | + + + | Address | Unknown | + + + | Phone | Unavailable | + + + Care Team Providers + +------+ + | Care Turn Supervisor Name | Role | Phone | + +------+ + | Tessy Farias MD | | + +------+ + Encounter Details +--------+ + + + + | Date | Type | Department | Care Team | Description | +--------+ + + + + | 07/09/ | Abstract | [facility] | Won, | | | 2018 | | GASTROENTEROLOGY | MD [address] | | | | | [address] [facility] | [address] | | | | | [address] [place], [place] | [place] [address] | | | | | [address] | | | | | | [phone] | | | +--------+ + + + + Social History + [...] recent travel history available. | + + documented as of this encounter Plan of Treatment Not on filedocumented as of this encounter Procedures + +--------+ + + + | Procedure Name | Priori | Date/Time | Associated Diagnosis | Comments | | | ty | | | | + +--------+ + + + | EXTERNAL: | Routin | 06/02/2016 | | Results for this | | COLONOSCOPY | e | | | procedure are in the | | | | | | results section. | + +--------+ + + + documented in this encounter Results EXTERNAL: COLONOSCOPY (06/02/2016) + + + + + + | Component | Value | Ref Range | Performed | Pathologist | | | | | At | Signature | + + + + + + | Colonoscopy | See Full Report~ [facility] | | | | | | Dr. Bustamante | | | | | Impression, | | | | | | External | | | | | + + + + + + documented in this encounter Visit Diagnoses Not on filedocumented in this encounter"
--- OUTSIDE RECORDS SUMMARY | ~2019-07-28 | XMS | Clinical Summary ---
Demographics + + + | Address | [address] | | | [place] [address] | + + + | Home Phone | | + + + | Preferred Language | Unknown | + + + | Marital Status | | + + + | Church Affiliation | 1027 | + + + | Race | Unknown | + + + | Ethnic Group | Unknown | + + + Author + + + | Author | [facility] | | | and [place] | + + + | Organization | [facility] | | | and [place] | + + + | Address | Unknown | + + + | Phone | Unavailable | + + + Care Team Providers + +------+ + | Care Flat Locker Name | Role | Phone | + [...] +--------+ +---------+--------+ | MEDICARE | RAILRO | [id number] | 06/13/20 | [phone] | | Medica [...] Person | Self | [birth year] | | [address] | | | al/Yinka | | 1960 | [phone] | [place] [address] | | | [place] | | | 3 (Home) | | + +--------+ +--------+ + + Advance Directives Patient has advance care planning documents on file. For more information, please contact:[facility] [place] [address]
--- OUTSIDE RECORDS SUMMARY | ~2019-07-28 | XMS | Clinical Summary ---
Demographics + + + | Address | [address] | | | [place] [address] | + + + | Home Phone | | + + + | Preferred Language | Unknown | + + + | Marital Status | | + + + | Moravian Affiliation | 1027 | + + + | Race | Unknown | + + + | Ethnic Group | Unknown | + + + Author + + + | Author | [facility] (Historical as of | | | 05-29-19) | + + + | Organization | [facility] (Historical as of | | | 05-29-19) | + + + | Address | Unknown | + + + | Phone | Unavailable | + + + Support + + + + + | Name | Relationship | Address | Phone | + + + + + | Sallie Govea | ECON | [address] | | | | | [place] | | | | | [phone] | | + + + + + Care Team Providers + +------+ + | Care Senior Applications Architect Name | Role | Phone | + +------+ + | Duoglas Muller DO | PP | | + +------+ + Allergies No Known Allergies Current Medications + + +--------+---------+------+------+-------+ | Prescription | Sig. | Disp. | Refills | Star | End | Statu | | | | | | t | Date | s | | | | | | Date | | | + + +--------+---------+------+------+-------+ | metoprolol | Take 100 mg by mouth | | | | | Activ | | (TOPROL-XL) 100 MG | daily. | | | | | e | | 24 hr tablet | | | | | | | + + +--------+---------+------+------+-------+ | traZODone | Take 200 mg by mouth | | | | | Activ | | (DESYREL) 100 MG | nightly. | | | | | e | | tablet | | | | | | | + + +--------+---------+------+------+-------+ | quetiapine | Take 300 mg by mouth | | | | | Activ | | (SEROQUEL) 300 MG | nightly. | | | | | e | | tablet | | | | | | | + + +--------+---------+------+------+-------+ | baclofen | Take 20 mg by mouth | | | | | Activ | | (LIORESAL) 20 MG | 2 (two) times daily. | | | | | e | | tablet | | | | | | | + + +--------+---------+------+------+-------+ | morphine (MSIR) 15 | Take 15 mg by mouth | | | | | Activ | | MG tablet | 2 (two) times daily. | | | | | e | + + +--------+---------+------+------+-------+ | | Take 1 tablet by | | | | | Activ | | HYDROcodone-acetamin | mouth every 4 (four) | | | | | e | | ophen (NORCO) 10-325 | hours as needed for | | | | | | | MG per tablet | Pain. | | | | | | + + +--------+---------+------+------+-------+ | | Take 1 tablet by | 30 | 0 | 09/1 | | Activ | | hydrochlorothiazide | mouth daily. | tablet | | 6/20 | | e | | (HYDRODIURIL) 12.5 | | | | 16 | | | | MG tablet | | | | | | | + + +--------+---------+------+------+-------+ | potassium chloride | Take 2 tablets by | 120 | 0 | 09/1 | | Activ | | SA (K-QUIRINO,COLLEENOR-CON) | mouth 2 (two) times | tablet | | 6/20 | | e | | 20 MEQ tablet | daily with meals. | | | 16 | | | + + +--------+---------+------+------+-------+ Active Problems + + + | Problem | Noted Date | + + + | Hypophosphatemia | 07/05/2016 | + + + | Hypokalemia | 07/05/2016 | + + + | Hypoalbuminemia | 07/05/2016 | + + + | Altered mental status | 06/21/2016 | + + + | Gout, unspecified | 06/21/2016 | + + + | Essential hypertension, benign | 06/21/2016 | + + + | Smoking | 06/21/2016 | + + + | Leukocytosis, unspecified | 06/21/2016 | + + + | Hypercalcemia | 06/21/2016 | + + + | Crohn's colitis | 06/05/2016 | + + + | Diarrhea | 05/27/2016 | + + + | Acute respiratory failure with hypoxia (HCC) | 05/24/2016 | + + + | Debility, unspecified | 05/24/2016 | + + + | Pneumonia of both lower lobes due to methicillin resistant | 05/23/2016 | | Staphylococcus aureus (MRSA) (HCC) | | + + + | E. coli pneumonia | 05/23/2016 | + + + | Hyperosmolality and/or hypernatremia | 05/22/2016 | + + + | Alcohol abuse | 05/22/2016 | + + + | Moderate protein-calorie malnutrition (HCC) | 05/21/2016 | + + + | Metabolic encephalopathy | 05/18/2016 | + + + | Acute kidney injury (HCC) | 05/18/2016 | + + + | Rhabdomyolysis | 05/18/2016 | + + + | Polysubstance abuse (HCC) | 05/18/2016 | + + + | Transaminitis | 05/18/2016 | + + + Resolved Problems + + + + | Problem | Noted | Resolved | | | Date | Date | + + + + | Acute respiratory failure with hypoxia (HCC) | 05/18/20 | | | | 16 | 6 | + + + + | Septic shock (HCC) | 05/18/20 | | | | 16 | 6 | + + + + | Colitis | 05/18/20 | | | | 16 | 6 | + + + + | Metabolic acidosis, increased anion gap | 05/18/20 | | | | 16 | 6 | + + + + | Delirium tremens | 05/18/20 | | | | 16 | 6 | + + + + Immunizations + + + + | Name | Dates Previously Given | Next Due | + + + + | Hepatitis A Adult | 06/05/2016 | | + + + + | Hepatitis B | 06/05/2016 | | + + + + | Pneumococcal | 05/20/2016 | | | Polysaccharide | | | | 23-valent | | | + + + + Social History + +-------+ +--------+------+ | Tobacco Use | Types | Packs/Day | Years | Date | | | | | Used | | + +-------+ +--------+------+ | Current Every Day | | 2.5 | | | | Smoker | | | | | + +-------+ +--------+------+ + + | Tobacco Cessation: Ready to Quit: No; Counseling Given: Yes | | Comments: discussed with pt's daughter | + + + + + | Sex Assigned at | Date Recorded | | | | + + + | Not on file | | + + + Last Filed Vital Signs + + + + | Vital Sign | Reading | Time Taken | + + + + | Blood Pressure | 144/90 | 06/28/2016 11:06 AM PDT | + + + + | Pulse | 79 | 06/28/2016 11:06 AM PDT | + + + + | Temperature | 36.6 C (97.9 F) | 06/28/2016 11:06 AM PDT | + + + + | Respiratory Rate | 18 | 06/28/2016 11:06 AM PDT | + + + + | Oxygen Saturation | 99% | 06/28/2016 11:06 AM PDT | + + + + | Inhaled Oxygen | - | - | | Concentration | | | + + + + | Weight | 96.2 kg (212 lb) | 06/27/2016 8:33 PM PDT | + + + + | Height | 177.8 cm (5' 10") | 06/27/2016 8:33 PM PDT | + + + + | Body Mass Index | 30.42 | 06/27/2016 8:33 PM PDT | + + + + Plan of Treatment Not on file Results Not on filefrom Last 3 Months Insurance + +--------+ +------+-------+ + | Payer | Benefi | Subscriber | Type | Phone | Address | | | t Plan | ID | | | | | | / | | | | | | | Group | | | | | + +--------+ +------+-------+ + | MEDICARE | MEDICA | [id number] | | | [address] | | | [place] | | | | [place] [phone] | | | [place] | | | | | | | [place] | | | | | + +--------+ +------+-------+ + + +--------+ +--------+ + + | Guarantor Name | Accoun | Relation to | Date | Phone | Billing Address | | | t Type | Patient | of | | | | | | | | | | + +--------+ +--------+ + + | RAZA TELLO | Person | Self [birth year] Home: | [address] | | | al/Fam | | 1960 | [phone] | [place] [address] | | | [place] | | | [phone] | | + +--------+ +--------+ + +
--- OUTSIDE RECORDS SUMMARY | ~2019-07-28 | XMS | Clinical Summary ---
Demographics + + + | Address | [address] | | | [place] [address] | + + + | Home Phone | | + + + | Preferred Language | Unknown | + + + | Marital Status | | + + + | Rastafarian Affiliation | 1027 | + + + | Race | Unknown | + + + | Ethnic Group | Unknown | + + + Author + + + | Author | [facility] (Historical as of | | | 05-29-19) | + + + | Organization | [facility] (Historical as of | | | 05-29-19) | + + + | Address | Unknown | + + + | Phone | Unavailable | + + + Support + + + + + | Name | Relationship | Address | Phone | + + + + + | Sallie Govea | ECON | [address] | | | | | [place] | | | | | [phone] | | + + + + + Care Team Providers + +------+ + | Care Engineer Remote Control Diesel Name | Role | Phone | + [...] +------+-------+ + | MEDICARE | MEDICA | [id number] | | | [address] | | | [place] | | | | [place] [phone] | | | [place] | | | [...] | Self | [birth year] | Home: | [address] | | | al/Fam | | 1960 | [phone] | [place] [address] | | | [place] | | | [phone] | | + +--------+ +--------+ + +
--- OUTSIDE RECORDS SUMMARY | ~2019-07-28 | XMS | Encounter Summary ---
Demographics + + + | Address | [address] | | | [place] [address] | + + + | Home Phone | | + + + | Preferred Language | Unknown | + + + | Marital Status | | + + + | Congregational Affiliation | 1027 | + + + | Race | Unknown | + + + | Ethnic Group | Unknown | + + + Author + + + | Author | [facility] | | | and [place] | + + + | Organization | [facility] | | | and [place] | + + + | Address | Unknown | + + + | Phone | Unavailable | + + + Care Team Providers + +------+ + | Care Plastic Roller Name | Role | Phone | + +------+ + | Tessy Farias MD | | + +------+ + Encounter Details +--------+ + + + + | Date | Type | Department | Care Team | Description | +--------+ + + + + | 07/09/ | Abstract | [facility] | Won, | | | 2018 | | GASTROENTEROLOGY | MD [address] | | | | | [address] [facility] | [place] [address] | | | | | [address] [place], [place] | [place] [address] | | | | | [address] | | | | | | [phone] | | | +--------+ + + + [...] + | Colonoscopy | See Full Report~ [facility] | | | | | | Dr. Bustamante | | | | | Impression, | | | | | | External | | | | | + + + + + + documented in this encounter Visit Diagnoses Not on filedocumented in this encounter"
[~2019-07-28 11:38] MED LIST changes: +SEROQUEL100 MG PO
--- OUTSIDE RECORDS SUMMARY | 2019-07-28 11:42 | XMS ---
PreManage Notification: DOREEN TELLO Security Emr Trainer Events No recent Security Events currently on file CRITERIA MET - [facility] - Has Care Guidelines - PDMP - [facility] - 2 Visits in 30 Days CARE PROVIDERS MARILUZ Zamorano Physical Medicine \T\ Rehabilitation: 07/13/2019-Current Pain Medicine PHONE: Unknown Severo Schafer Treatment Current PHONE: Unknown [facility] Other Current Orthopedic Surgery \T\ Fracture Clinic PHONE: Unknown Yaniv has no Care Guidelines for this patient. Care History Medical/Surgical 05/13/2019 [facility] - [facility] IS UNABLE TO CONTACT PATIENT- LEFT VOICE MESSAGES. - PATIENT NEEDS A PCP- PLEASE PROVIDE [facility] CONTACT NUMBER IF PATIENT IS SEEN IN THE ED [phone]. E.DOrion VISIT COUNT (12 MO.) 4 [facility] TOTAL 4 NOTE: Visits indicate total known visits. ED/UCC VISIT TRACKING (12 MO.) 07/28/2019 11:39 [facility] [place] TYPE: Emergency COMPLAINT: - MEDICATION REFILL REQUEST 07/12/2019 11:49 [facility] [place] TYPE: Emergency COMPLAINT: - VOMITING, MEDICATION REFILL DIAGNOSES: - termite control representative (current) use of systemic steroids - Chronic obstructive pulmonary disease, unspecified - Encounter for issue of repeat prescription - Bipolar disorder, unspecified - Nicotine dependence, unspecified, uncomplicated - Other fdc (current) drug therapy 05/09/2019 12:36 [facility] [place] TYPE: Emergency COMPLAINT: - MEDICATION REFILL REQUEST DIAGNOSES: - Bipolar disorder, unspecified - Nicotine dependence, cigarettes, uncomplicated - Encounter for issue of repeat prescription - Chronic obstructive pulmonary disease, unspecified - Other rn long term care (current) drug therapy - Crohn's disease, unspecified, without complications - Nicotine dependence, unspecified, uncomplicated 12/04/2018 00:38 [facility] [place] TYPE: Emergency COMPLAINT: - SOB INPATIENT VISIT TRACKING (12 MO.) 12/04/2018 09:11 [facility] [place] TYPE: Critical Care COMPLAINT: - COPD EXACERBATION DIAGNOSES: - Hypokalemia - Other fdc (current) drug therapy - Dorsalgia, unspecified - Other specified anxiety disorders - Flu due to oth ident influenza virus w oth resp manifest - Acute bronchospasm - termite control representative (current) use of opiate analgesic - Chronic obstructive pulmonary disease w (acute) exacerbation - Flu due to oth ident influenza virus w oth resp manifest - Chronic pain syndrome - Advrs eff of crbnc-anhydr inhibtr, benzo/oth diuretc, init - Nicotine dependence, cigarettes, uncomplicated - Essential (primary) hypertension - Hypokalemia - Acute bronchospasm - Chronic obstructive pulmonary disease w (acute) exacerbation - Bipolar disorder, unspecified - Other rn long term care (current) drug therapy - Acute and chronic respiratory failure with hypoxia - Malingerer [conscious simulation] - Essential (primary) hypertension - Shortness of breath - Chronic pain syndrome - Hyperuricemia w/o signs of inflam arthrit and tophaceous dis - Acute and chronic respiratory failure with hypercapnia - Bipolar disorder, unspecified - Acute and chronic respiratory failure with hypoxia - Nicotine dependence, cigarettes, uncomplicated - termite control representative (current) use of non-steroidal non-inflam (NSAID) - shelter (current) use of non-steroidal non-inflam (NSAID) - termite control representative (current) use of opiate analgesic - Advrs eff of crbnc-anhydr inhibtr, benzo/oth diuretc, init - Dorsalgia, unspecified - Hyperuricemia w/o signs of inflam arthrit and tophaceous dis - Malingerer [conscious simulation] - Other specified anxiety disorders - Acute and chronic respiratory failure with hypercapnia [email or web address]
[2019-07-28] MEDS ORDERED: QUETIAPINE FUM100 MG PO (11:56)
[2019-07-28] MEDS ORDERED: METOPROLOL SUC100 MG PO (14:05)
[2019-07-28] MEDS ORDERED: TRAZODONE HCL100 MG PO (14:05)
[2019-07-28] MEDS ORDERED: HYDROCHLOROTHIA50 MG PO (14:05)
[2019-07-28] MEDS ORDERED: VENTOLIN HFA18 GM INH (14:05)
[2019-07-28] MEDS ORDERED: SEROQUEL200 MG PO (14:05)
== END 2019-07-28 14:36 | disposition home or self-care (01) ==
LOC: ED 11:38
DX: Z76.0 Encounter for issue of repeat prescription (principal); J44.9 Chronic obstructive pulmonary disease, unspecified; F31.9 Bipolar disorder, unspecified; F17.200 Nicotine dependence, unspecified, uncomplicated; Z79.899 Other long term (current) drug therapy
CPT/HCPCS: 99281; 99406

== ENCOUNTER 2020-01-09 19:09 | Inpatient (IN) | payer MEDICARE ==
[~2020-01-09] VITALS: Ht 170.2 cm; Wt 113.4 kg
[~2020-01-09 19:09] MED LIST changes: +QUETIAPINE FUM100 MG PO
--- OUTSIDE RECORDS SUMMARY | 2020-01-09 19:12 | XMS ---
PreManage Notification: DOREEN TELLO Security Emt/Paramedic Events No recent Security Events currently on file CRITERIA MET - [facility] - Has Care Guidelines - History of Sepsis Dx - PDMP CARE PROVIDERS [place] [facility] 07/29/2019-Current PHONE: [phone] MARILUZ Zamorano Physical Medicine \T\ Rehabilitation: 07/13/2019-Current Pain Medicine PHONE: Unknown Severo Schafer Current PHONE: Unknown Bernardo Vargas Current Orthopedic Surgery \T\ Fracture Clinic PHONE: Unknown Yaniv has no Care Guidelines for this patient. Care History Medical/Surgical 07/29/2019 [facility] - [facility] HAS MADE SEVERAL ATTEMPTS TO CONTACT PATIENT. - PLEASE CONTACT W-KRISHNA [phone] IF PATIENT IS SEEN IN THE ED DURING THE DAY. 05/13/2019 [facility] - [facility] IS UNABLE TO CONTACT PATIENT- LEFT VOICE MESSAGES. - PATIENT NEEDS A PCP- PLEASE PROVIDE [facility] CONTACT NUMBER IF PATIENT IS SEEN IN THE ED [phone]. E.D. VISIT COUNT (12 MO.) 4 [facility]. TOTAL 4 NOTE: Visits indicate total known visits. ED/UCC VISIT TRACKING (12 MO.) 01/09/2020 19:09 [facility] TYPE: Emergency COMPLAINT: - ANXIETY 07/28/2019 11:39 [facility] TYPE: Emergency COMPLAINT: - MEDICATION REFILL REQUEST DIAGNOSES: - Other terminal system operator (current) drug therapy - Encounter for issue of repeat prescription - Bipolar disorder, unspecified - Chronic obstructive pulmonary disease, unspecified - Nicotine dependence, cigarettes, uncomplicated - Nicotine dependence, unspecified, uncomplicated 07/12/2019 11:49 [facility] TYPE: Emergency COMPLAINT: - VOMITING, MEDICATION REFILL DIAGNOSES: - jail (current) use of systemic steroids - Chronic obstructive pulmonary disease, unspecified - Encounter for issue of repeat prescription - Bipolar disorder, unspecified - Nicotine dependence, unspecified, uncomplicated - Other senior living (current) drug therapy 05/09/2019 12:36 [facility] TYPE: Emergency COMPLAINT: - MEDICATION REFILL REQUEST DIAGNOSES: - Bipolar disorder, unspecified - Nicotine dependence, cigarettes, uncomplicated - Encounter for issue of repeat prescription - Chronic obstructive pulmonary disease, unspecified - Other senior living (current) drug therapy - Crohn's disease, unspecified, without complications - Nicotine dependence, unspecified, uncomplicated INPATIENT VISIT TRACKING (12 MO.) No inpatient visits to display in this time frame [email or web address]
--- NOTE | 2020-01-10 06:26 | NUR ---
0520 PATIENT ARRIVED VIA STRETCHER. CONFUSED TO ALL EXCEPT HIS NAME. NOT FOLLOWING INSTRUCTIONS. ATTEMPTS TO GET OUT OF BED AND PULL LINE. PRN ATIVAN PROVIDED, MEDICAL RESTRAINTS ORDERED AND APPLIED TO WRISTS. SECURITY AT BEDSIDE. PATIENT STARTING TO SETTLE AFTER SEVERAL MINS. [address] ON RIGHT SIDE. BLOODY DRAINAGE NOTED. NO KREPITUS NOTED. COLLECTION CHAMBER WNL AND ATTECHED TO SUCTION. IV K INFUSING PER ORDERS, NEW SITE PLACED IN LEFT FOREARM. PATIENT HAS VERY DRY SKIN, CHAPPED LIPS, SCAB ON HIS LEFT ELBOW, SCRATCHES ON HIS ABD AND LOWER LEGS. AND EXTREME EXCORIATION IN GROIN NOTED, BARRIER CREAM APPLIED. ATTEND IN PLACE. 2L OXYMASK IN PLACE. O2 SATS >95%. 0630 PATIENT RESTING BUT OCCATIONALLY RESTLESS. WRIST RESTRAINTS WNL. SECURITY AT BEDSIDE 1:1.
--- NOTE | 2020-01-10 06:35 | NUR ---
PATIENT BECAME SUDDENLY AGITATED. DISCUSSED WITH . ONE TIME DOSE ORDERED FOR HALDOL.
--- NOTE | 2020-01-10 08:00 | NUR ---
PT HAVING INCREASED AGATATION AND WAS MEDICATED WITH 2MG ATIVAN AT THIS TIME, SECURITY IN ROOM, WRIST RESTRAINS ON AND TWO NURSE AT BEDISE TO KEEP PT IN BED AND FROM PULLING OUT TUBES AND LINES, PT VOIDED 400MLS ALEX IN COLOR URINE, CHEST TUBE DRESSING ABOUT OFF, REENFORCED WITH PINK TAPE, NO AIR LEAKS NOTED AT THIS TIME. ORAL CARE COMPLETED. ATAIVAN DID NOT HELP.
--- NOTE | 2020-01-10 08:37 | NUR ---
FULL REPORT RECIEVED FROM ANEL KUMAR. ALL QUESTIONS ANSWERED.
--- NOTE | 2020-01-10 09:04 | NUR ---
IV FLUIDS OF NS WITH 40 OF K STOPPED PER VERBAL ORDER BY .
[2020-01-10] MEDS ORDERED: QUETIAPINE FUM200 MG PO (09:14)
[2020-01-10] MEDS ORDERED: SEROQUEL200 MG PO (09:14)
[2020-01-10] MEDS ORDERED: VENTOLIN HFA18 GM INH (09:16)
[2020-01-10] MEDS ORDERED: HYDROCODON-ACE1 EAC8 PO (09:17)
[2020-01-10] MEDS ORDERED: TRAZODONE HCL100 MG PO (09:19)
[2020-01-10] MEDS ORDERED: GABAPENTIN600 MG PO (09:20)
[2020-01-10] MEDS ORDERED: HYDROCHLOROTHIA25 MG PO (09:21)
[2020-01-10] MEDS ORDERED: ATORVASTATIN CA40 MG PO (09:24)
[2020-01-10] MEDS ORDERED: BACLOFEN10 MG PO (09:25)
--- NOTE | 2020-01-10 09:32 | NUR ---
POTASSIUM RIDER STARTED ON PT. PT REMAINS CALM AND MANAGEABLE AT THIS TIME, RESTRAINTS ASSESSED FOR PT COMFORT AND SAFETY.
--- NOTE | 2020-01-10 10:41 | NUR ---
4 mg ativan given IV for agitation. x-ray in the room to take chest x-ray per Dr. Small.
--- NOTE | 2020-01-10 11:00 | NUR ---
vianey cares done on pt, washed entire area with soap and water, rinsed, and dried. nystop powder applied. some skin on scrotal area open and bleeding slightly. pt jacinta well. clean attend in place.
--- NOTE | 2020-01-10 12:00 | NUR ---
RESTRAINTS ASSESSED FOR PT SAFETY AND COMFORT.
--- NOTE | 2020-01-10 12:31 | NUR ---
SPOKE AT LENGTH WITH PATIENTS MOTHER CONSTANCE WILLIAM [phone]. SHE LIVES WITH PATIENT. SHE IS DISABLED AND SO IS HE. SHE STATES HE HELPS HER AND SHE HELPS HIM. SHE STATES HIS MENTAL HEALTH AND ADDICTIONS CAUSE HIM TO BE A PROBLEM AT TIMES, BUT WHEN HE IS DOING WELL HE IS A "SWEET LORE". SHE STATES DOES NOT NEED WALKING DEVICES. HIS DRIVES, SHE IS LIMITED IN WHERE SHE DRIVES. SHE STATES THE HOUSE HAS SOME STEPS WITH A RAIL, ONE LEVEL INSIDE. SHE STATES HE HAS A NEBULIZER. SHE STATES HE USED OXYGEN IN THE PAST, BUT NOT NOW. SHE STATES HE HAS BEEN FOR OVER 10 YEARS FROM HIS , HE HAS A STEPSON. HIS ONLY BIOLOGICAL DAUGHTER RECENTLY AND HE HAS A GRANDSON. SHE STATES HE USES [facility]. SHE STATES HE USES A PAIN CLINIC AT [facility] FOR HIS PAIN MEDICATION WHICH SHE STATES HE IS ADDICTED TOO. SHE STATES HE HAD HIS HYDROCODONE FILLED 120CT FRIDAY. SHE STATES HE HAD RAN OUT EARLY AND BORROWED 14 OF HER OXYCODONES AND HE DID X RAY DEVELOPER HER THOSE BACK FROM HIS NEW BOTTLE, BUT THAT SHE FOUND HIS BOTTLE EMPTY IN THE TRASH ON FRIDAY, SO HE IS NOT TAKING THESE CORRECTLY. SHE STATES HE OD'D ONCE ON HIS SERAQUIL. SHE STATES SHE HAS BEEN GIVING OUT HIS MEDICATIONS AFTER THAT UP UNTIL A FEW MONTHS AGO HE STARTED GETTING ANGRY WITH HER AND WAS YELLING, CURSING AND BEING "RAGEFUL" OVER IT. SHE STATES SHE NOW WISHES SHE HADN'T DONE THAT. SHE STATES SHE WILL BE WILLING TO HAVE HIM COME HOME AND THAT SHE WOULD HELP HIM AGAIN WITH THE MEDICATIONS IF HE WILL LET HER. SHE STATES SHE THINKS HE IS USING [facility] BUT NO OTHER DRUGS THAT SHE KNOWS OF. SHE IS AFRAID HE MIGHT HAVE TAKEN HIS BLOOD PRESSURE MEDICATIONS WRONG THIS LAST WEEK. SHE STATES HE WAS NOT ACTING RIGHT. SHE DOES NOT THINK HE WAS SUICIDAL. SHE STATES SHE FEELS BAD SHE CAN'T COME SEE HIM BUT SHE IS WORRIED ABOUT THE "VIRUS" AND KNOWS HER MEDICAL CONDITION PUTS HER AT HIGH RISK AND IS STAYING HOME. SHE STATES SHE HAS FOOD AND FEELS SAFE. WE DISCUSSED HIS CONDITION AND THAT WE ARE SLOWING TREATING HIS LOW SODIUM AND KEEPING HIM SAFE. SHE HAS BEEN IN TOUCH WITH ICU NURSES AND KNOWS SHE CAN CALL FOR UPDATES. QUESTIONS ANSWERED. WE DISCUSSED THAT UNTIL HE IS MORE ALERT, AT THIS TIME WE DO NOT HAVE A DISCHARGE PLAN IN PLACE, BUT WILL KEEP HER UPDATED.
--- NOTE | 2020-01-10 12:58 | NUR ---
MED REC COMPLETE
--- NOTE | 2020-01-10 13:20 | NUR ---
FULL REPORT GIVEN TO JOSIAS KUMAR. ALL QUESTIONS ANSWERED. REPORT ALSO UPDATED AT BEDSIDE.
--- NOTE | 2020-01-10 14:10 | NUR ---
PT MOVED TO MED/SURG. ALL PERSONAL BELONGINGS WENT WITH PT. TRANSFERED VIA BED.
--- NOTE | 2020-01-10 14:37 | NUR ---
PT TO MEDSURG. RESTRAINTS LOOSENED LIMBS MOVED ABOUT, MOVED UP IN BED, RESECURED. IV LEFT ARM IS INFILTRATED AND SWOLLEN SITE DC'D. IV RIGHT AC DOES NOT FLUSH DC'D. ASSESSMENT COMPLETED ELECTRICITY WENT OUT IN THE MIDDLE OF CHARTING THIS [employer] STARTS OVER. PT WAS RESTLESS AND APPEARED AGGITATED TRYING TO GET UP ATIVAN ADMINISTERED
--- NOTE | 2020-01-10 15:14 | NUR ---
PT RESTING AT THIS TIME SNORING SOFTLY APPEARS RELAXED. RESTRAINTS TO ARMS CHECKED FOR TIGHTNESS ABLE TO SLIP FINGER BETWEEN PT WRIST AND RESTRAINT. EXTRMETIES WARM AND UNREMARKABLE. COBAN REMOVED FROM LEFT HAND TO ENSURE NOT TO TIGHT AFTER INFILTRATION. FOREARM IS EDEMATOUS TO ELBOW
--- NOTE | 2020-01-10 16:12 | NUR ---
UNDERGARMENT CHANGED PT WAS SOAKED. ALDO CARE PROVIDED. ADJUSTED WRIST RESTRAINTS LOOSENED UP A LITTLE, PT REPOSITIONED WELL. ORAL CDARE PROVIDED. PT SOMEWHAT COOPERATIVE WITH ROLLING THIS WAY AND THAT, SETTLES DOWN WHEN ASKED.
--- NOTE | 2020-01-10 16:49 | NUR ---
ONE LARGE INCONT URINE OUTPUT.
--- NOTE | 2020-01-10 17:00 | NUR ---
patient resting in bed with eyes closed. Patient's attends clean and dry.
--- NOTE | 2020-01-10 17:15 | NUR ---
Patient resting in bed with eyes closed. resperations observed.
--- NOTE | 2020-01-10 17:28 | NUR ---
Patient adjusted up in bed with two person assist. Head of bed at 32 degrees.
--- NOTE | 2020-01-10 17:43 | NUR ---
PT MOVED UP IN THE BED RESTRAINTS REMOVED ONE AT A TIME TO MOVE LIMBS AROUND. RE-ATTACHED. PT RESTING SOUNDLY BUT AWAKENS TO VERBAL STIMULATION, MOSTLY COOPERATIVE TO REQUESTS. ORAL CARE PROVIDED
--- NOTE | 2020-01-10 18:23 | NUR ---
PT RESTING SOUNDLY RESTRAINTS CHECKED FOR TIGHTNESS. FINGERS SLIDE INBETWEEN ARM AND RESTRAINT EASILY. PT APPEARS COMFORTABLE AND RESTFUL. 02 REDUCED TO 2 LPM OXY MASK SATS 94%
--- NOTE | 2020-01-10 19:05 | NUR ---
BEDSIDE REPORT RECEIVED FROM JOSÉ FERRARA. 2L OXYGEN BY OXYMASK IN PLACE. SPO2 94%. DR. YANES IN ROOM CHECKING ON pt. SOFT RESTRAINTS IN PLACE. pt APPEARS COMFORTABLE, NOT SHIFTING IN BED. IVF INFUSING WNL ORDERED. CHEST TUBE IN PLACE. BED ALARM ON.
--- NOTE | 2020-01-10 19:06 | CONS ---
[facility] [address], [place] [address] Signed DATE OF CONSULTATION: 01/10/2020 CONSULTING PHYSICIAN: Garret Yanes MD REQUESTING PHYSICIAN: Dr. Segovia. PROBLEM: Hyponatremia and delirium with incidentally noted right moderate size pneumothorax and right 8th rib fracture. HISTORY: This 59-year-old white man has some underlying psychiatric disease, is well known to the hospitalist Service at [facility]. He presented by ambulance transport for some amount of disorientation and not feeling well. He was found to have an elevated white count and became more delirious and somewhat combative. His electrolytes were found to be abnormal with a sodium of 114. The patient takes Seroquel routinely, though has been abstinent of it for some amount of time. He also takes hydrochlorothiazide. A chest x-ray was performed, which showed a moderate size right-sided pneumothorax and incidentally noted right 8th rib fracture. A CT scan of the head showed no sign of intracranial injury. Consultation was undertaken for consideration of chest tube on the right side. PHYSICAL EXAMINATION: The patient was less combative by the time I saw him, having been given Haldol as well as 2 mg of Ativan. Notably, the Ativan caused an excitatory response previously. He is unable to give his own name to me and is somnolent with the aforementioned sedation intervention. His trachea is midline. There is no crepitus. He has no jugular venous distention. Chest x-ray was reviewed showing a moderate size right-sided pneumothorax. No sign of fluid accumulation in the pleural space. Extremities show no sign of edema or petechiae. ASSESSMENT: The patient has right-sided pneumothorax with delirium, possibly related to hyponatremia with underlying psychiatric disorder. A chest tube would be advisable, particularly if the pneumothorax should be increasing in size occultly. He will certainly need anesthesia support for placement of a chest tube. IV sedation will be preferred rather Electronically Signed By: GARRET YANES MD 01/10/20 1906 PATIENT NAME: DOREEN TELLO CONSULTATION DATE OF : 62 REPORT #: [id number] PHYSICIAN: GARRET YANES MD PCP: TAMIKA JACKSON MD REPORT IS CONFIDENTIAL AND NOT TO BE RELEASED WITHOUT AUTHORIZATION [address] [address] Signed than general endotracheal intubation of course. I discussed this with Dr. Segovia and Garret Herron CRNA, who is now available. PLAN: Chest tube on right side. Garret Yanes MD JM/MODL /[id number] Copies: ~ Electronically Signed By: GARRET YANES MD 01/10/20 1906 PATIENT NAME: DOREEN TELLON CONSULTATION DATE OF : 62 REPORT #: [id number] PHYSICIAN: GARRET YANES MD PCP: TAMIKA JACKSON MD REPORT IS CONFIDENTIAL AND NOT TO BE RELEASED WITHOUT AUTHORIZATION
--- NOTE | 2020-01-10 19:06 | OR ---
[facility] [address], [place] [address] Signed DATE OF OPERATION: 01/10/2020 SURGEON: Garret Yanes MD TIME: 04:25 a.m. PREOPERATIVE DIAGNOSES: Right-sided pneumothorax, associated hyponatremic delirium. POSTOPERATIVE DIAGNOSES: Right-sided pneumothorax, associated hyponatremic delirium. PROCEDURE: Placement of right-sided 20-Cymraes chest tube with subsequent replacement to 32-Cymraes chest tube. ANESTHESIA: Intravenous sedation with ketamine and propofol (Garret Herron CRNA), and local 1% lidocaine. INDICATION: This 59-year-old white man, who presented to the emergency room and found to have combativeness and delirium with associated hyponatremia. He has an underlying psychiatric disorder as well. A chest x-ray demonstrated a right-sided pneumothorax and 8th rib fracture of uncertain etiology. A chest tube was recommended based on the moderate size of the pneumothorax. An administrative consent is obtained as the patient is delirious and unable to provide any reasonable consent otherwise. FINDINGS: The pleural space was entered without problem and was free of adhesions. An initial 20-Cymraes chest tube was placed and considerable air leak was initially noted, which resolved. Postprocedure chest x-ray showed incomplete expansion of the lung, requiring replacement of the tube to a larger size. A 32-Cymraes chest tube was then placed apically directed and showing good full expansion of the lung and minimal limited air leak. DESCRIPTION OF PROCEDURE: In the semi-recumbent position with the right arm elevated and assisted by others, the right chest wall was prepared with Betadine solution and draped sterilely. Intravenous Electronically Signed By: GARRET YANES MD 01/10/20 1906 PATIENT NAME: DOREEN TELLO OPERATIVE REPORT DATE OF : 62 REPORT #: [id number] PHYSICIAN: GARRET YANES MD PCP: TAMIKA JACKSON MD REPORT IS CONFIDENTIAL AND NOT TO BE RELEASED WITHOUT AUTHORIZATION [facility] [address] [place], [place] [address] Signed sedation was administered by the fine wire drawer with full cardiopulmonary monitoring. Lateral to the right nipple, a skin wheal was made with 1% lidocaine. A transverse incision was made with a #15 blade. Dissection was carried through the subcutaneous tissue of the chest wall, ultimately identifying the rib. Over the probably 6th rib, the pleural space was entered allowing for lazo of air. Digital examination of pleural space showed no sign of adhesions or other problem. A 20-Cymraes chest tube was insinuated into the pleural space and secured to the skin with nylon suture. It was attached to a Pleur-evac device with the enclosed adapter device. Initial significant air leak was noted, which ultimately abated. The patient remained somewhat sedated. A postprocedure chest x-ray was performed, which showed incomplete expansion of the lung. The chest tube appeared to be directed from a lateral to medial position. I was quite certain it was in the pleural space; however, it appeared to be nonfunctional. Examination of the connection of the chest tube to the Pleur-evac device showed a poor fit, which was remedied more forcefully and tape additionally applied. Repeat chest x-ray performed showing no improvement. On that basis, an additional more aiken chest tube was deemed advisable. The chest tube was removed and with sterile technique, a 32-Cymraes chest tube insinuated in the pleural space directed atypically. This secured the skin with nylon suture and attached to a Pleur-evac device and air leak was noted, which quickly abated. The chest tube was secured to the chest wall with appropriate dressing including pink tape. A chest x-ray was once again performed at this time showing the chest tube directed to the apex with good expansion of the lung. No sign of problem. Garret Yanes MD /MODL /[id number] cc: DO Viktoriya Reza MD Copies: ATIYA BUSH DO Electronically Signed By: GARRET YANES MD 01/10/20 1906 PATIENT NAME: DOREEN TELLO OPERATIVE REPORT DATE OF : 62 REPORT #: [id number] PHYSICIAN: GARRET YANES MD PCP: TAMIKA JACKSON MD REPORT IS CONFIDENTIAL AND NOT TO BE RELEASED WITHOUT AUTHORIZATION [address] [address] Signed VIKTORIYA ACLVO MD ~ Electronically Signed By: GARRET YANES MD 01/10/20 1906 PATIENT NAME: DOREEN TELLO OPERATIVE REPORT DATE OF : 62 REPORT #: [id number] PHYSICIAN: GARRET YANES MD PCP: TAMIKA JACKSON MD REPORT IS CONFIDENTIAL AND NOT TO BE RELEASED WITHOUT AUTHORIZATION
--- NOTE | 2020-01-10 21:25 | NUR ---
PHONE CALL TO , NOTIFIED OF CRITICAL LAB VALUE. MD TO PUT ORDERS IN.
--- NOTE | 2020-01-10 21:40 | NUR ---
pt INCONTINENT OF URINE. 3PA TO CHANGE pt. CSM INTACT BUE, SOFT RESTRAINTS IN PLACE ORDERED. pt CONFUSED, DROWSY, NOT ANSWERING ORIENTATION QUESTIONS. REDIRECTABLE DURING CARES. LUNG SOUNDS CLEAR THROUGHOUT. CHEST TUBE INTACT, SANGUINOUS FLUID DRAINING FROM CHEST TUBE. IV FLUSHED WNL, IV ANTIBIOTIC INFUSING. BED ALARM ON. CURTAIN OPEN FOR CLOSE VIEW FROM NURSES STATION.
--- NOTE | 2020-01-11 00:01 | NUR ---
IN pt ROOM FOR RESTRAINT ASSESSMENT. pt AGITATED WITH REPOSITIONING. CSM INTACT BUE, SKIN INTACT. pt PULLING AT RESTRAINTS. OFFERED URINAL, VOID IN URINAL, TEA COLOR. pt RELAXING, CLOSING EYES, APPEARS TO FALL ASLEEP. 2.5 L OXYGEN BY OXYMASK IN PLACE.
--- NOTE | 2020-01-11 00:40 | NUR ---
SECOND POTASSIUM RIDER INFUSING WNL. IV SITE CDI. pt RESTING IN BED, SNORING, APPEARS TO BE ASLEEP. RESTRAINTS IN PLACE. CHEST TUBE DRAINING SANGUINOUS FLUID.
--- NOTE | 2020-01-11 01:10 | NUR ---
pt CALLING OUT "WHERE AM I". PULLING AT RESTRAINTS. RESTRAINTS RELEASED, CSM INTACT, NO SKIN BREAKDOWN. pt ALLOWED TO STRETCH. REORIENTATION PROVIDED. IVF INFUSING WNL ORDERED. PRN AGITATION MEDICATION ADMINISTERED. pt REPOSITIONED IN BED, 3PA. APPEARS TO BE RESTING COMFORTABLY. 2.5L OXYGEN BY OXYMASK IN PLACE. SPO2 WNL ON CPOX.
--- NOTE | 2020-01-11 03:04 | NUR ---
pt RESTING IN BED, IV SITE ASSESSED. IV SITE APPEARS TO BE INFILTRATED, "MY HAND HURTS" STATES pt. IV SITE DC'D. NEW PIV INSERTED ON RIGHT HAND, pt TOLERATED WELL. UNABLE TO ANSWER ORIENATATION QUESTIONS. ABLE TO ANSWER "YES/NO". ASSESSMENT COMPLETE. REPOSITIONED IN BED. CSM AND SKIN INTACT BUE.
--- NOTE | 2020-01-11 03:15 | NUR ---
pt CALLING OUT "NURSE, COME HELP ME WITH MY HANDS I NEED TO GET OUT OF HERE". SITTING UP IN BED, PULLING AT RESTRAINTS. "I NEED SOMETHING TO RELAX". PRN ATIVAN ADMINISTERED. IVF INFUSING WNL ORDERED. pt STATING HE NEEDS TO GO TO THE RESTROOM. URINAL PROVIDED. UNABLE TO VOID AT THIS TIME. CURTAIN OPEN FOR CLOSE VIEW FROM NURSES STATION.
--- NOTE | 2020-01-11 03:30 | NUR ---
MD CALLED, NOTIFIED OF AGITATION, INCREASED LOC, CONTINUED CONFUSION. ORDER FOR PRN PAIN MEDICATION REPEATED BACK. CRITICAL LAB VALUE NOTIFIED AT THIS TIME, ORDERS TO DECREASE IVF RATE TO 75 ML/HR REPEATED BACK.
--- NOTE | 2020-01-11 05:45 | NUR ---
WRIST RESTRAINTS RELEASED. pt SLEEPING SOUNDLY, RR 20. BREATHING UNLABORED. 2.5 L OXYGEN BY OXYMASK IN PLACE. CSM INTACT BUE, NO SKIN BREAKDOWN AT RESTRAINTS. CHEST TUBE INTACT. NO CREIPTUS NOTED. VSS. LIGHTS OFF IN ROOM.
--- NOTE | 2020-01-11 06:22 | NUR ---
pt CONFUSED, CALLING OUT AT TIMES. RESTRAINTS IN PLACE TO PROTECT CHEST TUBE. CHEST TUBE TO WATER SUCTION WNL THORUGHOUT SHIFT, FLUCTUATING, 100 MLS SANGUINOUS DRAINGE THIS SHIFT. NO CREPITUS NOTED. SPO2 WNL ON 2.5L BY OXYMASK. PRN ATIVAN FOR AGITATION. PRN TORADOL X 1 FOR PAIN. IVF INFUSING WNL THORUGHOUT SHIFT. SOFT RESTRAINTS ASSESSED Q2H, pt REPOSITIONED THROUGHOUT SHIFT.
--- NOTE | 2020-01-11 07:36 | NUR ---
IN TO SEE PT DURING SHIFT CHANGE. WRIST RESTRAINTS RELEASED AT THIS TIME; SKIN AND CMS INTACT, PT ABLE TO MOVE HANDS AND WRISTS FREELY AT THIS TIME. PT CONFUSED. WRIST RESTRAINTS PLACED BACK ON AT THIS TIME TO PREVENT CHEST TUBE LINE PULLING. PT REPOSITIONED AT THIS TIME. PT SAT UP AND INSTRUCTED TO CDB; ABLE TO DEMONSTRATE CDB WITHOUT DIFFUCULTY; LOOSE, NON PRODUCTIVE COUGH. CHEST TUBE INTACT TO RIGHT ANTERIOR LOWER RIB CAGE; PATENT AND DRAINING APPROPRIATELY. SAROSANG DRAINAGE NOTED. NO AIR LEAK NOTED AT THIS TIME AND NO CREPITUS. PT'S HOB ELEVATED. PT CLOSE TO RN STATION WITH FREQUENT MONITORING. NO NOTABLE DISTRESS AT THIS TIME.
--- NOTE | 2020-01-11 08:08 | NUR ---
PATIENT SLEEPING. TWO LABORATORY STAFF IN ROOM. CALL LIGHT WITHIN REACH. NO OTHER NEEDS AT THIS TIME
--- NOTE | 2020-01-11 09:12 | NUR ---
PATIENT RESTING IN BED. RN IN ROOM. PATIENT'S ATTEND CHANGED. PATIENT RESPOSITIONED SUPINE. THREE PERSON ASSISTING. VITAL SIGNS AND I&O DONE. CALL LIGHT WITHIN REACH. NO OTHER NEEDS AT THIS TIME
--- NOTE | 2020-01-11 10:00 | NUR ---
IN TO HANG K RIDER AT THIS TIME. SOFT RESTRAINTS ASSESSED AT THIS TIME; RESTRAINTS RELEASED; PT ABLE TO MOVE BILAT WRIST/HANDS FREELY, CMS INTACT. RESECURRED RESTRAINTS AT THIS TIME. PT ASKED THIS RN "WHAT HAPPENED". EXPLAINED TO PT HE HAD A RIB FX AND A TUBE IN HIS CHEST; PT STATES "OK" AND RETURNED BACK TO SLEEP. PT INTERACTIVE AT TIMES, REMAINS CONFUSED AND DISORIENTED. CONTINUE RESTRAINTS TO PREVENT PULLING OUT IV LINE. IV SITE PATENT, NO S/S OF INFILTRATION OR PROBLEMS AT THIS TIME. PT RECENTLY TURNED AND CHANGED FOR INCONTINENCE. CLOSE TO RN STATION. PT HAS NO S/S OF DISTRESS. PT ON 4L OXYMASK, SAT LEVEL OF 93%. DR. YANES RECENTLY IN TO REMOVE CHEST TUBE; DRESSING REMAINS CDI TO RIGHT CHEST. PT REMAINS CLOSE TO RN STATION FOR FREQUENT MONITORING. CPOX INTACT, HOB ELEVATED, RESPIRATIONS NON LABORED.
--- NOTE | 2020-01-11 11:35 | NUR ---
in to speak with Raza. He does not awaken or respond to voice. Spoke with Rn and she states he has been difficult to awaken. Will attempt tomorrow.
--- NOTE | 2020-01-11 12:04 | NUR ---
ORAL CARE PROVIDED AT THIS TIME. PT PULLED IV OUT OF HAND. PT MORE AWAKE, REMAINS CONFUSED, DISORIENTED AND FORGETFUL. PT UNABLE TO TELL THIS RN WHERE HE IS. PT INTERACTIVE AND MORE ALERT AT THIS TIME. WRIST RESTRAINTS ASSESSED; REMOVED; PT MOVED HANDS AND FINGERS FREELY; CMS INTACT. RESTRAINTS PLACED BACK ON AT THIS TIME. PT REMAINS ON 4L OXYGEN, SAT LEVEL OF 93%+, RESP EVEN AND NON LABORED. HOB ELEVATED. DR. CALVO IN TO SEE PT. ATTEMPTING TO PLACE NEW IV AT THIS TIME. WILL CONTINUE TO MONITOR. WRIST RESTRAINTS CONTINUED TO PREVENT LINE PULLING.
--- NOTE | 2020-01-11 12:48 | NUR ---
ADMIN ATIVAN 2MG IVP FOR AGITATION WELL TORADOL 15MG IVP FOR REPORTS OF PAIN. HOB ELEVATED. WRIST RESTRAINTS INTACT, CMS INTACT. CLOSE TO RN STATION. PERSONAL SUPPLIES AND CALL LIGHT WITHIN REACH. NO NEEDS AT THIS TIME. NO NEEDS AT THIS TIME. PERSONAL SUPPLIES AND CALL LIGHT WITHIN REACH.
--- NOTE | 2020-01-11 13:25 | NUR ---
PATIENT SLEEPING. PATIENT'S ATTEND CHANGED. LINENS CHANGED. TWO PERSON ASSISTING. VITAL SIGNS AND I&O DONE. CALL LIGHT WITHIN REACH. NO OTHER NEEDS AT THIS TIME
--- NOTE | 2020-01-11 13:51 | NUR ---
PT RESPONSIVE TO VERBAL STIMULI, IS AGITATED ATTEMPTING TO PULL AT IV LINE. INSTRUCTED PT NOT TO PULL HIS IV LINE; UNABLE TO FOLLOW DIRECTION HE IS CONFUSED AND AGITATED. WRIST RESTRAINTS ASSESSED, REMOVED AT THIS TIME; CMS AND SKIN INTACT; REMOVED RESTRAINTS FOR PT TO MOVE WRISTS/HANDS; FULL ROM NOTED. HOB ELEVATED; OXMASK INTACT, 02 AT 4L, SAT LEVEL OF 95%, RESP NON LABORED. CLOSE TO RN STATION FOR FREQUENT MONITORING. NO NEEDS AT THIS TIME.
--- NOTE | 2020-01-11 15:29 | NUR ---
CALLED DR CALVO TO REPORT CRITICAL NA. HE ORDERED k+ REPLACEMENT. PUT IN ORDER.
--- NOTE | 2020-01-11 15:30 | NUR ---
SPOKE WITH PT EARLIER TODAY AND HE STATED IT WAS OK TO TALK TO HIS CONSTANTINO, AND CHILDREN JERAMIE ABOUT HIS CONDITION OR ANSWER THEIR QUESTIONS.
--- NOTE | 2020-01-11 16:10 | NUR ---
IN TO SEE PT. PT AWAKE, REMAINS CONFUSED AND FORGETFUL. CONTINUES TO PULL AT LINES. RESTRAINTS ASSESSED; SKIN AND CMS INTACT TO BILAT WRISTS. PT ABLE TO MOVE BILAT WRISTS AND FINGERS FREELY. PT TOLERATING JELLO AND SIPS OF WATER. PT RECENTLY REPOSITIONED AND CHANGED FOR INCONT VOID. 3L OXYMASK CONTINUED; 02 SAT LEVEL OF 94%, NO RESP DISTRESS NOTED. RIGHT CHEST WALL DRESSING CDI. CLOSE TO RN STATION. WILL CONTINUE TO MONITOR.
--- NOTE | 2020-01-11 16:27 | NUR ---
CALL LIGHT ANSWERED, PATIENT ASKS FOR JELLO. PATIENT RESTING IN BED. RESPIRATORY THERAPIST IN ROOM. JELLO GIVEN. CALL LIGHT WITHIN REACH. NO OTHER NEEDS AT THIS TIME
--- NOTE | 2020-01-11 17:04 | NUR ---
PATIENT RESTING IN BED. VITAL SIGNS AND I&O DONE. CALL LIGHT WITHIN REACH. NO OTHER NEEDS AT THIS TIME
--- NOTE | 2020-01-11 17:56 | NUR ---
PT SLEEPING. WRIST RESTRAINTS RELEASED; CMS AND SKIN INTACT. WRIST RESTRAINTS PLACED BACK ON TO PREVENT LINE PULLING. PT CONTINUES TO REQUIRE 3L OXYMASK, SAT LEVEL OF 93%, RESP EVEN AND NON LABORED. PT CLOSE TO RN STATION. NO S/S OF DISTRESS AT THIS TIME. HOB ELEVATED. PERSONAL SUPPLIES AND CALL LIGHT WITHIN REACH.
--- NOTE | 2020-01-11 19:00 | NUR ---
BEDSIDE REPORT RECEIVED FROM JOSÉ SANCHEZ. pt RESTING IN BED, SPO2 90% ON 3L OXYGEN BY OXYMASK. IV POTASSIUM RIDER INFUSING WNL ORDERED. pt AWAKE, CONFUSED. SOFT RESTRAINTS IN PLACE. pt RESTING IN BED, ARMS RELAXED. SOFT RESTRAINTS IN PLACE. CALL LIGHT IN LAP.
--- NOTE | 2020-01-11 20:29 | NUR ---
ASSESSMENT COMPLETE. pt ORIENTED TO PERSON, , LOCATION. REORIENTATION TO EVENT, DATE, YEAR PROVIDED. LUNG SOUNDS COARSE THROUGHOUT. pt RATES PAIN 6/10 IN BACK, WRISTS, ELBOWS. PRN TORADOL ADMINISTERED. pt C/O FEELING ANXIOUS, PRN MEDICATION ADMINISTERED. WRIST RESTRAINTS RELEASED, RANGE OF MOTION COMPLETE. pt COOPERATIVE. SOFT WRIST RESTRAINTS IN PLACE. 4L OXYGEN BY OXYMASK IN PLACE, RT CRISTINA IN ROOM. TITRATING OXYGEN TO MAINTAIN SATURATIONS >92%. CPOX IN PLACE. DRESSING CDI RIGHT SIDE. NO CREPITUS NOTED. CALL LIGHT IN REACH. IVF INFUSING WNL ORDERED.
--- NOTE | 2020-01-11 21:45 | NUR ---
PHONED, NOTIFIED OF CRITICAL LAB VALUE. NO NEW ORDERS. pt RESTING IN BED, SPO2 95% ON 4L OXYGEN BY NC. APPEARS TO BE SLEEPING, BREATHING UNLABORED. LIGHTS OFF IN ROOM. SOFT RESTRAINTS IN PLACE.
--- NOTE | 2020-01-11 22:50 | NUR ---
RESTRAINTS RELEASED, CSM INTACT. pt ALLOWED TO STRETCH ARMS. COOPERATIVE. CALL LIGHT IN LAP.
--- NOTE | 2020-01-11 23:30 | NUR ---
pt CALLING OUT, REQUESTING SOMETHING FOR ANXIETY. PRN ATIVAN ADMINISTERED. pt PROVIDED WITH DRINK OF WATER. RESTRAINTS RELEASED REQUESTED AND SOFT RESTRAINTS BACK IN PLACE. IVF INFUSING WNL ORDERED.
--- NOTE | 2020-01-12 00:45 | NUR ---
JOSÉ MERCADO AND CECILLE HATCH IN ROOM. RESTRAINTS RELEASED. pt PROVIDED WITH JELLO, ICE WATER. RESTING IN BED. SOFT RESTRAINTS ON. IVF INFUSING WNL.
--- NOTE | 2020-01-12 00:54 | NUR ---
PATIENT ASKED FOR SOMETHING TO EAT AND DRINK. JELLO AND ICE WATER PROVIDED. JOSÉ MERCADO WAS WITH PATIENT. THIS PEWTER CASTER FED THE PATIENT.
--- NOTE | 2020-01-12 01:10 | NUR ---
PATIENT ASKED FOR ANOTHER JELLO. PROVIDED AND FED THE PATIENT.
--- NOTE | 2020-01-12 02:45 | NUR ---
CHECKED ON pt. RESTING IN BED WITH EYES CLOSED. BREATHING UNLABORED. 4L OXYGEN BY OXYMASK IN PLACE. SPO2 WNL. CSM INTACT BUE.
--- NOTE | 2020-01-12 04:11 | NUR ---
pt ASSESSMENT COMPLETE. pt RESTING IN BED, CONFUSED. ORIENTED TO SELF, WORLD EVENTS. REORIENTATION TO DATE, TIME, LOCATION, EVENT. pt COOPERATIVE. CSM INTACT BUE. LUNG SOUNDS COARSE UPPER LOBES, DIMINISHED IN BASES BILATERALLY. 2L OXYGEN BY NC IN PLACE, SPO2 WNL ON CPOX. IVF INFUSING WNL ORDERED. JELLO FED TO pt. pt NOW WATCHING TV.
--- NOTE | 2020-01-12 05:28 | NUR ---
CHECKED ON pt. RESTING IN BED WITH EYES CLOSED, BREATHING UNLABORED. 2L OXYGEN BY NC IN PLACE.
--- NOTE | 2020-01-12 06:40 | NUR ---
pt HOLLERING OUT, "I NEED ATIVAN". RESTRAINTS RELEASED, pt PULLING AT IV SITE. PRN ATIVAN ADMINISTERED. SOFT RESTRAINTS IN PLACE. pt ORIENTED TO PLACE, NOT EVENT, DATE. REORIENTATION PROVIDED. 2L OXYGEN BY NC IN PLACE. SPO2 WNL.
--- NOTE | 2020-01-12 07:25 | NUR ---
PT SNORING SOFTLY AT BEDSIDE REPORT. RESTRAINTS ARE TIED VERY LOOSE ALLOWING MOVEMENT, BUT PREVENTING ABILITY TO REACH ACROSS TO PULL MEDICAL EQUIPMENT. FINGERS SLIPS EASILY BETWEEN TIE AND WRIST.
--- NOTE | 2020-01-12 07:28 | NUR ---
PATIENT SLEEPING. RN AND RN STUDENT IN ROOM. CALL LIGHT WITHIN REACH. NO OTHER NEEDS AT THIS TIME
--- NOTE | 2020-01-12 08:40 | NUR ---
PT AWAKE AND INTERACTIVE DR YANES IN TO SEE HIM. RE-ORIENTED TO ROOM AND SITUATION. 10/13 SITTER WITH THIS PT.
--- NOTE | 2020-01-12 09:15 | NUR ---
PATIENT RESTING IN BED. BEDBATH DONE. PATIENT USIGN A CLEAN GOWN AND ATTEND. LINENS CHANGED. TWO PERSON ASSISTING. CALL LIGHT WITHIN REACH. NO OTHER NEEDS AT THIS TIME
--- NOTE | 2020-01-12 09:29 | NUR ---
PT CONTINUES TO BE ALERT AND INTERACTIVE, HE IS COOPERATIVE. BEDBATH GIVEN ORAL CADRE COMPLETE. PT REQUESTS JELLO AND ATIVAN BOTH ARE PROVIDED. RESTRAINTS ARE RELEASED TIES REMAIN ON WRISTS AT THIS TIME BUT NO LONGER TIED TO THE BED.
--- NOTE | 2020-01-12 09:30 | NUR ---
PATIENT RESTING IN BED. THE STUDENT RN OBTAINED THE FOLLOWING VITAL SIGNS. I&O DONE. CALL LIGHT WITHIN REACH. NO OTHER NEEDS AT THIS TIME
--- NOTE | 2020-01-12 10:22 | NUR ---
PT CONTINUES AWAKE AND COOPERATIVE NO RESTRAINTS AT THIS TIME 10/13 SITTER FOR SAFETY. TOLERATES 2 JELLO NO EMESIS OR C/O NAUSEA.
--- NOTE | 2020-01-12 12:40 | NUR ---
Spoke with Raza. He is somewhat awake at this time. Pt with congested cough. Discussed with patient what he would like to do on dc. Asked if he would like to go to a SNF for medication management and deconditioning. He will think about this. Pt asking how his is doing. Informed I have not spoken with her, but it was reported she called and nurses gave an update. Pt becomes tired and stops speaking. Asked if he is tired and needs to stop and he states yes. Informed I will see him tomorrow.
--- NOTE | 2020-01-12 13:04 | NUR ---
PT CONTINUES TO BE COOPERATIVE DR YU AGREES PT CAN HAVE SOME FOOD KEEPING ASPIRATION RISK IN MIND. PT WAS GIVEN ATIVAN PER HIS REQUESTS HE IS NAPPING NOW WILL OFFER FOOD WHEN HE AWAKENS. PT HAS REMOVED 02 SEVERAL TIMES THIS SHIFT SATS REMAIN LOW 90'S. 02 REPLACED WHILE SLEEPING BECAUSE HE DIPS INTO THE 80'S
--- NOTE | 2020-01-12 13:48 | NUR ---
PATIENT RESTING IN BED. PATIENT'S ATTENDS AND LINENS CHANGED. THREE PERSON ASSISTING. WARM BLANKET PROVIDED. RN AND RN STUDNET IN ROOM. VITAL SIGNS DONE BY RN. I&O DONE. CALL LIGHT WITHIN REACH. NO OTHER NEEDS AT THIS TIME
--- NOTE | 2020-01-12 14:50 | NUR ---
PT TOLERATES MOIST CHOPPED MEAL NO COUGHING OR DIFFICULTIES. REMAINS ALERT AND COOPERATIVE. SITTING UPRIGHT IN BED AT THIS TIME CALL LIGHT IN HAND, BED ALARM IS SET FOR SAFETY
--- NOTE | 2020-01-12 17:40 | NUR ---
PT EATS REGULAR MEAL FOR EVENING WELL TOLERATED. GREAT IMPROVEMENT MENTALLY THIS SHIFT HAS BEEN ABLE TO SPEAK TO HIS MOTHER VIA PHONE, ASK QUESTIONS, AND IS OTHERWISE ORIENTED TO SITUATION. RESTRAINTS NO LONGER NEEDED. PT HAS NOT ATTEMPTED TO GET UP UNATTENDED AND REORIENTS WHEN CAUGHET PULLING AT IV OR OTHER. NO C/O DISCOMFORT.
--- NOTE | 2020-01-12 19:32 | NUR ---
received report from morning shift. pt awake, alert. participate in report from morning shift. pt needs new iv. will be back for assessment.
--- NOTE | 2020-01-12 19:43 | EKG ---
[facility] [address] [place] [address] Signed Sinus rhythm with fusion complexes Low voltage QRS Prolonged QT Abnormal ECG When compared with ECG of 04-DEC-2018 00:49, fusion complexes are now present Questionable change in QRS axis Nonspecific T wave abnormality, worse in Inferior leads QT has lengthened Confirmed by VASU YU DO ([id number]) on 01/12/2020 7:43:26 PM Electronically Signed By: VASU YU DO 01/12/20 194 PATIENT NAME: ELISHADOREEN Electrocardiogram DATE OF : 62 PHYSICIAN: VASU YU DO REPORT #: [id number] REPORT IS CONFIDENTIAL AND NOT TO BE RELEASED WITHOUT AUTHORIZATION
--- NOTE | 2020-01-12 20:15 | NUR ---
pt reported pain 5/10. see mar. pt was drowsy but able to answer the questions and followed commands. on ra. VSS. new iv 18 g in RA started by charge nurse Flori. flushed with 10 ml of NS without difficulties. done with assessment.
--- NOTE | 2020-01-13 00:05 | NUR ---
PT ASLEEP, APPEARS COMFORTABLE. OPEN MOUTH BREATHING NOTED. SPO2 92% ON RA. RR 20. WILL MONITOR CLOSELY
--- NOTE | 2020-01-13 01:42 | NUR ---
Pt sleeping, snouring. SpO2 dropped down to 86% on RA. put on 1 l of O2, Spo2 went up to 93%. Pt diaphoretic. took extra blankets off, adjusted linnens for comfort. call light in reach, bed in low position, alarm is on for safety.
--- NOTE | 2020-01-13 03:41 | NUR ---
pt awake. GETTING RESTLESS. ASSESSED. PT WAS INCONTINENT IN IS BOWELS. THIS NURSE AND CECILLE HATCH PERFORMED PERY CARE, GAVE PT A BED BATH, CHANGED HIS LINNENS, GAWN AND ATTENDS. PT TOLERATED WELL. DENIED PAIN. BACK TO SLEEP. BED IN LOW POSITION, ALARM IS ON FOR SAFETY.
--- NOTE | 2020-01-13 03:43 | NUR ---
THIS ELECTRODYNAMICIST AND THE PRIMARY RN VEENA GAVE COMPLETE BED BATH TO PATIENT. HAIR SHAMPOOED.
--- NOTE | 2020-01-13 03:51 | NUR ---
DRESSING ON RIGHT SIDE WAS CHANGED.
--- NOTE | 2020-01-13 05:38 | NUR ---
pt AWAKE RESTING IN BED. VSS. SPO2 90% ON RA. pt ASSISTED TO SIDE OF BED, C/O DIZZINESS, WEAKNESS. LYING IN BED AT THIS TIME. ICE WATER PROVIDED. REPOSITIONED WITH TWO NURSING STAFF ASSIST.
--- NOTE | 2020-01-13 06:37 | NUR ---
PT SLEPT THROUGH MOST OF THE NIGHT. WAS INCONTINENT IN BM. BED BATH WAS GIVEN AND BED LINNENS WERE CHANGED. PT SPO2 DROPPED DOWN TO 86% DUE TO SLEEPING APNEA. PUT ON 1 L, SPO2 WENT UP TO 92% PT WAS ABLE URINATE, SIT UP ON THE EDGE OF THE BED AND USED URINAL.
--- NOTE | 2020-01-13 07:48 | NUR ---
0718: Bedside report recieved from Almaz KUMAR. Pt remains confused and appears in no distress, alarm remains on. Call ribera within reach.
--- NOTE | 2020-01-13 09:08 | NUR ---
PT REMAINS CONFUSED BUT PRIOR STAFF STATES HIS CONFUSION IS DECREASED FROM WHAT IT WAS PRIOR. PT APPEARS IN NO PHYSICAL DISTRESS AT THIS TIME. ATTENDS DRY AT THIS TIME. SEE ASSESSMENT.
--- NOTE | 2020-01-13 09:10 | NUR ---
ALARM REPLACED AT THIS TIME.
--- NOTE | 2020-01-13 11:41 | NUR ---
Pt sleeping at this time.
--- NOTE | 2020-01-13 12:28 | NUR ---
Pt resting at the bedside and appears in no distress. Alarm remains on.
--- NOTE | 2020-01-13 13:25 | NUR ---
PATIENT IN BED SLEEPING. CALL LIGHT WITHIN REACH. BED ALARM SET.
--- NOTE | 2020-01-13 13:30 | NUR ---
Spoke with pt. He is stating he needs to get home to his 80 yo mother. Has difficulty with his words and is not clear in his thoughts.
--- NOTE | 2020-01-13 14:31 | NUR ---
PT AWOKE FROM [facility] [employer] AND HE CALLED AND REQUESTED "A PILL TO MAKE ME SLEEP". PT WAS INFORMED THAT HE SOULD TRY AND STAY AWAKE SO HE CAN SLEEP TONIGHT. PT DENIES ANY OTHER PROBLMES AT THIS TIME. WILL CONTINUE TO MONITOR.
--- NOTE | 2020-01-13 16:16 | NUR ---
Pt seen by Dr Tamayo at this time.
--- NOTE | 2020-01-13 16:39 | NUR ---
Pt sleeping at this time on 2l o2. Tele reads SR at 73.
--- NOTE | 2020-01-13 17:12 | NUR ---
Pt sleeping, bed alarm is on and call ribera is within reach.
--- NOTE | 2020-01-13 18:21 | NUR ---
PT SLEEPING, VSS AND CHECKING THEM DID NOT WAKE HIM UP.
--- NOTE | 2020-01-13 19:15 | NUR ---
SHIFT REPORT RECEIVED FROM DAYSHIFT RN DOMINICK AT BEDSIDE. PT AWAKE AND RESTING IN BED, 2-2.5LNC IN PLACE. PT VISITING WITH NURSING STAFF, DOMINICK AT BEDSIDE TO ASSIST WITH VOID. NO FURTHER NEEDS VERBALIZED, CALL LIGHT IN REACH. BED ALARM ON FOR SAFETY.
--- NOTE | 2020-01-13 20:57 | NUR ---
ASSESSMENT COMPLETE, SCHEDULED MEDS GIVEN (SEE EMAR). VSS, PT FORGETFUL AND REPEATS SELF AT TIMES. BED ALARM ON FOR SAFETY. PT ASKING ABOUT NURSING STAFF'S KNOWLEDGE REGARDING MARIJUANA AND BRIEFLY JOKED AND ASKED FOR VICODIN FOR PAIN CONTROL. WHEN FURTHER PROMPTED BY NURSING STAFF REGARDING CURRENT PAIN, PT DECLINED PAIN AND NEED FOR PAIN MEDICATION AT THIS TIME. NO DISTRESS OR OUTWARDS S/SX OF PAIN NOTED. HR WNL, SINUS RHYTHM. WILL MONITOR. IV SITE WNL, FLUSHES EASILY. PT RESTING IN BED, CALL LIGHT IN REACH.
--- NOTE | 2020-01-13 22:30 | NUR ---
PT REQUESTING NEED TO VOID, SBA TO EDGE OF BED. 700MLS OUT NOTED. WHILE PT RESTING IN BED, PT BRIEFLY ASKED ABOUT SEEING "A MONKEY IN THE MIRROR". PT REORIENTED TO PLACE, DATE, TIME, AND SURROUNDINGS. PT APPEARS COMFORTABLE, NO DISTRESS NOTED. BED ALARM ON FOR SAFETY. WILL CONTINUE TO MONITOR.
--- NOTE | 2020-01-13 22:41 | NUR ---
PT REPORTING 8/10 GENERALIZED PAIN IN LEGS, BACK, AND RIGHT LATERAL. NO PAIN MEDS AVAILABLE IN EMAR, DISCUSSED WITH MEDICAL RECORDS CUSTODIAN. RENEE FOR PRN TYLENOL ORDERED. TYLENOL PRN ADMINISTERED TO PT, SEE EMAR. NO FURTHER NEEDS. WARM BLANKET PROVIDED. CALL LIGHT IN REACH.
--- NOTE | 2020-01-13 23:25 | NUR ---
PT RESTING QUIELTY IN BED, RESPIRATIONS EVEN AND UNLABORED, NO DISTRESS NOTED. CALL LIGHT IN REACH, BED ALARM ON.
--- NOTE | 2020-01-14 00:25 | NUR ---
PT RESTING IN BED WITH EYES CLOSED, APPEARS COMFORTABLE. NO DISTRESS NOTED. RESPIRATIONS EVEN AND UNLABORED, CALL LIGHT IN REACH. BED ALARM ON.
--- NOTE | 2020-01-14 01:16 | NUR ---
PT RESTING IN BED, 2LNC IN PLACE. RR 18-20, EVEN AND UNLABORED. NO DISTRESS NOTED. WILL CONTINUE TO MONITOR, CALL LIGHT IN REACH. BED ALARM ON FOR SAFETY.
--- NOTE | 2020-01-14 03:21 | NUR ---
ASSESSMENT COMPLETE, NO NEW CHANGES OR CONCERNS. PT AWAKE AND RESTING IN BED, 2LNC IN PLACE. PT BOOSTED AND REPOSITIONED IN BED WITH HELP FROM CECILLE AKBAR. PT REORIENTED TO DATE, BED ALARM ON FOR SAFETY. CALL LIGHT IN REACH. PT APPEARS COMFORTABLE, NO DISTRESS NOTED. WILL CONTINUE TO MONITOR FOR CHANGES.
--- NOTE | 2020-01-14 04:22 | NUR ---
PT REQUESTING A "PAIN PILL". THIS RN IN ROOM WITH PRN TYLENOL, PT RESTING IN BED WITH EYES CLOSED AND RR WNL. NO DISTRESS NOTED, NO FACIAL MOANING OR CRYING NOTED. WILL WAIT AND ALLOW TO CONTINUE RESTING, CALL LIGHT IN EASY REACH OF PT.
--- NOTE | 2020-01-14 04:30 | NUR ---
PT INITIALLY HAD DIFFICULTY CALMING DOWN AND GETTING TO SLEEP. VSS, PT ON 2LNC. BED ALARM ON FOR SAFETY, 1-2PA WITH FWW. REORIENT PRN. SALINE LOCKED, REGULAR DIET TOLERATING WELL. NO NAUSEA REPORTED. NIO FOR PRN TYLENOL ADDED TO EMAR, CONTROLLING PAIN AT THIS TIME.
--- NOTE | 2020-01-14 05:36 | NUR ---
pt used call light to ask for assistance with picking up his soda from the ground. nothing further needed at this time.
--- NOTE | 2020-01-14 06:36 | NUR ---
NAOMIE ODEN IN ROOM TO ASSIST WITH EKG. PRN TYLENOL GIVEN FOR 9/10 GENERALIZED PAIN. NO FURTHER NEEDS, CALL LIGHT IN REACH, BED ALRAM ON FOR SAFETY.
--- NOTE | 2020-01-14 07:35 | NUR ---
0710: Report recieved from Armando KUMAR. Pt sleeping at this time, call light in reach and bed alarm is on.
--- NOTE | 2020-01-14 09:21 | NUR ---
PT UP TO BATHROOM WITH OT WHILE THIS RN IN ROOM. PT BACK TO BED. PT DESAT TO 86% ON ROOM AIR ROOM. PLACED PT ON 2L NC, PT SATING AT 89% ON 2L NC. ASKED PT TO COUGH, PT STATES "I DON'T NEED TO COUGH AND IT HURTS TO COUGH COUGH BECAUSE OF MY BROKEN RIB" GAVE PT A PILLOW TO SPLINT CHEST TO COUGH. PT COMPLIED WITH COUGHING. O2 SAT UP TO 93% 2L NC. THIS RN STILL IN ROOM. PT BEING ASSITED BY OT TO GET UP, PT THREW PANTS AND O2 MONITOR ACROSS ROOM. DOMINICK KUMAR DISCUSSED WITH PT THAT OT IS TRYING TO HELP HIM, PT STATED TO DOMINICK "I GET THAT YOU ARE TRYING TO HELP BUT YOU ARE AN IDIOT" DOMINICK KUMAR GAVE PT A MINUTE AND NOW PT COMPIANT WITH OT
--- NOTE | 2020-01-14 10:26 | NUR ---
RIGHT LATERAL CHEST DRESSING REMOVED ORDERED, SITE APPEARS HEALTHY. PT CURRENTLY REFUSED A SHOWER AND STATES THAT HE IS GOING TO NAP AT THIS TIME.
--- NOTE | 2020-01-14 10:31 | NUR ---
SAT NOW 96% ON 2L, WILL CONTINUE TO MONITOR.
--- NOTE | 2020-01-14 10:51 | NUR ---
SET PATIENT UP FOR A SHOWER SOMETIME TODAY.
--- NOTE | 2020-01-14 11:18 | NUR ---
PT WELCOMED ME IN, HAD DIFFICULTY STAYING AWAKE. DOZED OFF REPEATEDLY DURING VISIT. GAVE BLESSING AND WILL TRY AGAIN
--- NOTE | 2020-01-14 11:42 | NUR ---
PT SLEEPING AT THIS TIME.
--- NOTE | 2020-01-14 12:57 | NUR ---
PT RESTING IN HIS BED WITH NO NEW COMPLAINTS. SEE ASSESSMENT. PT CONTINUES TO DECLINE A SHOWER AT THIS TIME.
--- NOTE | 2020-01-14 14:36 | NUR ---
PT was recently seen by Dr Tamayo. Chest x-ray ordered and they were notified. Pt used IS on request and did cough with doing so. Pt now being taken to the X-ray dept.
--- NOTE | 2020-01-14 14:56 | NUR ---
Pt returned to his room from x-ray dept. Pt used the br and got back in bed after refusing to sit up in his chair or showering at this time. He states he is tired and is going to take a nap at this time.
--- NOTE | 2020-01-14 15:30 | NUR ---
Spoke with patient. He is again stating he wants to go home. He states he does not want to go to a SNF when discharged. Called and spoke with pts mother and she states she is ready for him to com home. She assists him with his medications and staying track. He is ok to return to home whenever Dr. ahumada.
--- NOTE | 2020-01-14 17:24 | NUR ---
SAT 92% ON 2L, PT STATES HIS BREATHING FEELS "BETTER". LUNG SOUNDS REMAIN DECREASED IN ALL LOBES WITH THE RIGHT LOWER BEING THE MOST DECREASED. PT WAS INFORMED THAT HE NEEDS TO GET OUT OF HIS BED AND DO MORE BREATHING EXERCISES AND START MOVING MORE. THE PT STATES UNDERSTANDING OF WHY THIS IS REQUESTED AND HE STATES HE WILL NOT DO SO. HE WAS AGAIN ENCOURAGED TO SHOWER AND HE STATES HE WILL DO SO AFTER DINNER.
--- NOTE | 2020-01-14 18:19 | NUR ---
Dr Tamayo notifed of the chest x-ray results.
--- NOTE | 2020-01-14 18:37 | NUR ---
DISCUSSED WITH PT THAT HE SHOULD GET UP TO SHOWER, WITH HELP WITH SHARON WILBURN PT DID AGREE TO A SHOWER. PT SUCCESSFULLY SHOWERED. WHILE PT WAS UP, ABLE TO DISCUSS WITH PT THAT HE SHOULD ALSO GO FOR WALK BECAUSE OF HIS RECENT CHEST X-RAY. PT STATED THAT HE WILL GO FOR A WALK "IF IT WILL SHUT THIS NURSE UP" (TALKING ABOUT THIS NURSE). PT UP FOR 1 LAP OF THE MEDSURG UNIT, PT TOLERATED WELL WITHOUT FEELING SHORTNESS OF BREATH. TRIED TO TALK PT INTO ANOTHER LAP BUT PT STATED "MY LEGS FEEL JIGGLY", DISCUSSED WITH PT THAT HE SHOULD GET UP AND MOVE MORE. PT DISCUSSED THAT HE WANTED TO GO TO BED. PT BACK TO BED, CALL LIGHT WITHIN REACH.
--- NOTE | 2020-01-14 20:30 | NUR ---
ASSESSMENT COMPLETE, SCHEDULED MEDS GIVEN (SEE EMAR). PT AWAKE AND RESTING IN BED, RATES PAIN 6/10, RECENTLY MEDICATED WITH PRN TYLENOL. VSS, PT ON 2LNC. NO DISTRESS NOTED. IV SITE SALINE LOCKED, FLUSHES EASILY. CALL LIGHT IN REACH, BED ALARM ON FOR SAFETY. RT IN ROOM FOR BREATHING TREATMENT.
--- NOTE | 2020-01-14 21:53 | EKG ---
[facility] [address] [facility] [place], [place] [address] Signed No QRS complexes found, no ECG analysis possible When compared with ECG of 11-JAN-2020 12:38, Current undetermined rhythm precludes rhythm comparison, needs review Confirmed by VASU YU DO ([id number]) on 01/14/2020 9:52:53 PM Electronically Signed By: VASU YU DO 01/14/20 2153 PATIENT NAME: DOREEN TELLO Electrocardiogram DATE OF : 62 PHYSICIAN: VASU YU DO REPORT #: [id number] REPORT IS CONFIDENTIAL AND NOT TO BE RELEASED WITHOUT AUTHORIZATION
--- NOTE | 2020-01-14 21:55 | EKG ---
[facility] [address] [facility] [place], [place] [address] Signed Normal sinus rhythm Incomplete right bundle branch block ST \T\ T wave abnormality, consider anterolateral ischemia Prolonged QT Abnormal ECG When compared with ECG of 12-JAN-2020 13:16, (Unconfirmed) Previous ECG has undetermined rhythm, needs review Confirmed by VASU YU DO ([id number]) on 01/14/2020 9:55:38 PM Electronically Signed By: VASU YU DO 01/14/20 2155 PATIENT NAME: DOREEN TELLO GABBIE Electrocardiogram DATE OF : 62 PHYSICIAN: VASU YU DO REPORT #: [id number] REPORT IS CONFIDENTIAL AND NOT TO BE RELEASED WITHOUT AUTHORIZATION
--- NOTE | 2020-01-15 00:50 | NUR ---
PT RESTING IN BED WITH EYES CLOSED. RR EVEN AND UNLABORED. NO DISTRESS NOTED, PT APPEARS COMFORTABLE. 2LNC IN PLACE. CALL LIGHT IN REACH, BED ALARM ON FOR SAFETY.
--- NOTE | 2020-01-15 03:49 | NUR ---
ASSESSMENT COMPLETE, NO NEW CHANGES OR CONCERNS. 2LNC IN PLACE, PT REPORTS TOLERABLE 3/10 PAIN. SITE FROM CHEST TUBE HEAVY DUTY MECH[employer] EQUIPMENT, DRY. NO DRAINAGE NOTED. NO NEEDS VERBALIZED, CALL LIGHT IN REACH.
--- NOTE | 2020-01-15 05:39 | NUR ---
VSS, PT ON 2LNC. SNACK ALSO PROVIDED PER PT REQUEST. NO FURTHER NEEDS, PT COMPLAINT AT THIS TIME, CALL LIGHT IN REACH. BED ALARM ON FOR SAFETY.
--- NOTE | 2020-01-15 07:36 | NUR ---
BEDSIDE REPORT RECEIVED FROM PAULINE KUMAR. WHITE BOARD UPDATED. ALL QUESTIONS ANSWERED. PATIENT SLEEPING ON RIGHT SIDE. NO NEEDS AT THIS TIME.
--- NOTE | 2020-01-15 09:04 | NUR ---
complaining of scrotum discomfort. reports it started "after i was given the lasix". encouraged to urinate. denies need to void.
--- NOTE | 2020-01-15 10:52 | NUR ---
WORKING WITH PHYSICAL THERAPIST NOW. REQUIRED ENCOURAGEMENT TO GET OUT OF BED. WILL PROVIDE ICE PACK FOR SCROTUM DISCOMFORT WHEN BACK TO BED.
--- NOTE | 2020-01-15 11:06 | NUR ---
PT UP TO WALK WITH PHYSICAL THERAPY. PT RETURNED TO ROOM AND UP IN CHAIR. PT DENIES ANY SHORTNESS OF BREATH OR CHEST DISCOMFORT AT THIS TIME. PT STATES THAT HE STILL HAS SOME DISCOMFORT IN HIS TESTICLES. PT GIVEN A TOWEL, PILLOW CASE AND ICE PACK TO TRY TO ALLEVIATE DISCOMFORT. WITH PT UP TO CHAIR, HAS CALL LIGHT WITHIN REACH.
--- NOTE | 2020-01-15 13:18 | NUR ---
PT LYING IN BED. VSS. NO NEEDS AT THIS TIME.
--- NOTE | 2020-01-15 14:27 | NUR ---
PT PUT EXPOSURE MACHINE OPERATOR LIGHT TO ASK FOR HIS URINAL TO BE EMPTIED. PT RESTING IN BED, CALL LIGHT WITHIN REACH. NO OTHER CONCERNS AT THIS TIME
--- NOTE | 2020-01-15 19:15 | NUR ---
SHIFT REPORT RECEIVED FROM DAYSHIFT RN CORNELIO AND NOHEMY AT BEDSIDE. PT ON THE PHONE AND RESTING IN BED, NO DISTRESS NOTED. BOARD UPDATED, CALL LIGHT IN REACH.
--- NOTE | 2020-01-15 19:30 | NUR ---
HELPED PT TO THE BATHROOM AND BACK TO BED WITH HIS FWW. BEDSIDE TABLE AND CALL LIGHT IN REACH. PT NEEDS NOTHING MORE AT THIS TIME.
--- NOTE | 2020-01-15 21:30 | NUR ---
ASSESSMENT COMPLETE, SCHEDULED MEDS GIVEN (SEE EMAR). PRN TYLENOL ALSO GIVEN FOR 3-4/10 GENERALIZED PAIN. VSS, PT ON RA. WOUND FROM RIGHT LATERAL CHEST TUBE REMOVAL SITE SCRUBBER MACHINE TENDER, DRY. NO DRAINAGE NOTED. PT RESTING IN BED, COMPLAINT WITH CARE, BED ALARM ON FOR SAFETY. CALL LIGHT IN REACH, PT DENIES FURTHER NEEDS.
--- NOTE | 2020-01-16 02:54 | NUR ---
ASSISTED PT TO SIT AT SIDE OF BED AND USE URINAL. HE IS BACK IN BED. ADMINISTERED TYLENOL FOR 4/10 "ACHES" AND TRAZADONE PT IS HAVING TROUBLE SLEEPING. HE DENIES FURTHER NEEDS AT THIS TIME. FRESH ICEWATER PROVIDED.
--- NOTE | 2020-01-16 06:12 | NUR ---
VITALS AND I&OS DONE AND CHARTED. GARBAGES EMPTIED. HELPED PT TO THE BATHROOM AND BACK TO BED WITH HIS FWW. BEDSIDE TABLE AND CALL LIGHT IN REACH.
--- NOTE | 2020-01-16 07:05 | NUR ---
ICE PACK GIVEN PER PT REQUEST.
--- NOTE | 2020-01-16 10:21 | NUR ---
Pt sitting in bed at this time, A&OX3. Pt reporting pain has imrpoved to right rib cage. Pt denies needs at this time. Personal supplies and call light within reach.
--- NOTE | 2020-01-16 17:57 | NUR ---
PT SITTING UP IN BED, A&OX3. PT ON RA, RESP EVEN AND NON LABORED. PT REPORTED TO THIS RN HE IS DOING "WELL TODAY". NO NEEDS. PERSONAL SUPPLIES AND CALL LIGHT WITHIN REACH.
--- NOTE | 2020-01-16 19:05 | NUR ---
SHIFT REPORT RECEIVED FROM DAYSHIFT JOSÉ SANCHEZ AT BEDSIDE. PT AWAKE AND RETTING READY TO VOID VIA URINAL WITH HELP FROM DAYSHIFT ASSISTANT SUPERINTENDENT. BOARD UPDATED, NO NEEDS VERBALIZED. CALL LIGHT IN REACH.
--- NOTE | 2020-01-16 20:20 | NUR ---
ASSESSMENT COMPLETE, SCHEDULED MEDS GIVEN (SEE EMAR). PT DENIES PAIN AT THIS TIME, VSS. PT A/O, FORGETFUL AT TIMES. COMPLIANT WITH CARE, BED ALARM ON FOR SAFETY. RT IN ROOM FOR BREATHING TREATMENT, LUNG SOUNDS CLEAR DIMINISHED IN THE BASES. WOUND TO RIGHT CHEST FROM CHEST TUBE REMOVAL PABLITO, DRY. NO FURTHER NEEDS, CALL LIGHT IN REACH.
--- NOTE | 2020-01-17 01:50 | NUR ---
ASSESSMENT COMPLETE, NO NEW CHANGES OR CONCERNS. PT AWAKE REQUESTING TYLENOL FOR 2-3 GENERALIZED PAIN. NO NEW CHANGES OR CONCERNS. NO CHANGES TO WOUND/INCISION SITE FROM CHEST TUBE REMOVAL. SITE DRY. WILL CONTINUE TO MONITOR. NO FURTHER NEEDS, CALL LIGHT IN REACH.
--- NOTE | 2020-01-17 03:59 | NUR ---
CHECKED ON PT TO REASSES PAIN AFTER TYLENOL GIVEN, PT RESTING WITH EYES CLOSED, RESPIRATIONS EVEN AND UNLABORED. BED IN LOWEST POSITION AND CALL LIGHT IN REACH.
--- NOTE | 2020-01-17 06:15 | NUR ---
prn tylenol given for 3/10 generalized pain on right lateral. prn tylenol given (see emar). no further needs, call light in reach.
--- NOTE | 2020-01-17 07:48 | NUR ---
Pt sitting up in bed, a&ox3. Pt has no needs at this time. Personal supplies and call light within reach.
--- NOTE | 2020-01-17 09:29 | NUR ---
PATIENT UP TO SHOWER, 1PA FWW. PATIENT MOSTLY INDEPENDENT IN SHOWER. SHAMPOO, ALDO CARE, ORAL CARE, SKIN CARE DONE. NEW ATTENDS AND GOWN PROVIDED. LINENS CHANGED. PATIENT BACK TO BED, 1PA FWW. CALL LIGHT IN REACH. NO FURTHER NEEDS AT THIS TIME.
--- NOTE | 2020-01-17 10:57 | NUR ---
Tylenol 500mg PO admin for reports of 7/10 right rib pain.
[2020-01-17] MEDS ORDERED: GABAPENTIN300 MG PO (11:16)
[2020-01-17] MEDS ORDERED: TRAZODONE HCL50 MG PO (11:16)
[2020-01-17] MEDS ORDERED: QUETIAPINE FUM100 MG PO (11:17)
[2020-01-17] MEDS ORDERED: QUETIAPINE FUMA25 MG PO (11:17)
[2020-01-17] MEDS ORDERED: NICOTINE PATCH1 EAC1 TD (11:24)
[2020-01-17] MEDS ORDERED: NICORETTE4 M2 BUCCAL (11:25)
--- NOTE | 2020-01-17 11:27 | NUR ---
IV TAKEN OUT UPON RN REQUEST. CATH INTACT AND LOOKED GOOD, RN NOTIFIED.
--- NOTE | 2020-01-17 11:53 | NUR ---
PATIENT HAS BEEN HERE X 7 DAYS. ADMITTED FOR HYPONATREMIA. CURRENT DIET: REGULAR. HAS A GOOD APPETITE. ATE 100% OF BREAKFAST THIS AM AND 100% OF MEALS YESTERDAY. ALSO ASKED FOR MTN DEW TODAY. PATIENT LIKELY TO D/C IN THE NEXT DAY OR TWO. WORKING WITH PT TO GET STRONGER. NO NUTRITION INTERVENTION NEEDED AT THIS TIME. CONTINUE REGULAR DIET. WILL REMAIN AVAILABLE.
--- NOTE | 2020-01-17 12:27 | NUR ---
PT IN BED EATING LUNCH; TOLERATING WELL. RIGHT ARM ELEVATED IN PILLOWS ABOVE HEART LEVEL, ICE IN USE. PT REPORTS PAIN LEVEL OF 9/10 IN RIGHT HAND. RIGHT HAND DRESSING CDI, CMS INTACT TO RUE. PT DENIES NEEDS AT THIS TIME. VS TAKEN AND ARE STABLE. CPOX INTACT, 98% ON RA. PT DENIES NEED TO VOID OF YET. PERSONAL SUPPLIES AND CALL LIGHT WITHIN REACH.
--- NOTE | 2020-01-17 13:00 | NUR ---
Spoke with Raza. He wants to dc to home today to his moms house. He states she is 73 and he takes care of her. He would like a DrOrion in [place] and Alyssa attempted to call [facility] and [facility]. Pt has been tresspassed from both and they will not take him. Informed he will need to cont. to see his Dr[facility]ion in [facility]. He does see [facility], appts made for Medication Mangement tomorrow at 12 and one for January 25 at 1 pm for counseling. They will notify him if he needs to go in or if these appts will be by phone. Dr. Mora is ordering and he would like [facility]. Chart sent with progress notes, face sheet, orders, H&P.
--- NOTE | 2020-01-17 13:35 | NUR ---
WENT OVER DISCHARGE INSTRUCTIONS WITH PT. HE VOICED UNDERSTANDING. DRESSED RT. SIDE WITH TELFA AND TAPE. PT GETTING DRESSES HAS CALLED FAMILY TO LET THEM KNOW HE WILL BE HOME SOON. VS ARE WNL. PT IS DRESSED AND WAITING FOR TAXI.
--- NOTE | 2020-01-17 14:08 | NUR ---
PT DRESSED, SITTING ON BED WAITING FOR DC AND RIDE HOME. PT IS PLEASANT, HAD GOOD VISIT. PT MENTIONED THAT HE IS VERY PLEASED WITH CARE. REQUESTED [facility], PROVIDED AND GAVE TO HOUSE SUPV. PT BELIEVES IN PRAYER AND HAD A STAFF MEMBER VISIT WITH HIM ABOUT CHELA AND PRAYER. SEEMED TO BE VERY PLEASED THAT PHAR. LOGAN CARED ENOUGH ABOUT HIM TO TAKE THE TIME HE DID. PT SAID HE WILL CONTINUE TO PRAY FOR THE STAFF'S SAFETY. HAD PRAYER WITH PT.
--- NOTE | 2020-01-17 16:21 | NUR ---
Call from [facility], they will not serve this client as he does not have a Dr. from [place]. Asked if they are able to check and see if the Dr. has a partner who is licensed in [place] as this is usually the process. They deny they can take these steps. Will contact [facility] tomorrow to see if they can assist this pt. with medication management in the home.
== END 2020-01-17 14:10 | disposition home or self-care (01) | DRG 166 ==
LOC: ED 19:09 → CCU 19:10 → ED 19:10 → CCU 01-10 04:14 → MS 01-10 13:31
PROVIDERS: ADMIT Internal Medicine
PROC: 0B9K30Z Drainage of Right Lung with Drainage Device, Percutaneous Approach (ICD-10-PCS; principal; 2020-01-10)
DX: S22.31XA Fracture of one rib, right side, initial encounter for closed fracture (principal); G93.41 Metabolic encephalopathy; J96.91 Respiratory failure, unspecified with hypoxia; E87.1 Hypo-osmolality and hyponatremia; S27.0XXA Traumatic pneumothorax, initial encounter; R78.81 Bacteremia; E87.6 Hypokalemia; E80.6 Other disorders of bilirubin metabolism; J44.9 Chronic obstructive pulmonary disease, unspecified; I10 Essential (primary) hypertension; E79.0 Hyperuricemia without signs of inflammatory arthritis and tophaceous disease; G89.4 Chronic pain syndrome; F31.9 Bipolar disorder, unspecified; X58.XXXA Exposure to other specified factors, initial encounter; Z79.899 Other long term (current) drug therapy; Z72.0 Tobacco use; Z79.1 Long term (current) use of non-steroidal anti-inflammatories (NSAID); Z79.891 Long term (current) use of opiate analgesic
CPT/HCPCS: 00520; 36415; 36600; 70450; 71045; 71046; 80048; 80053; 80076; 80176; 81001; 82803; 83605; 83735; 83930; 83935; 84550; 85025; 87040; 87076; 87077; 87081; 87185; 87186; 87502; 87880; 93005; 93010; 94640; 94760; 94762; 96365; 96366; 96367; 96375; 96376; 97110; 97116; 97162; 97165; 97535; 99285-25; G0480; J0456; J0696; J1630; J1650; J1885; J1940; J2060; J2405; J2704; J3475; J3480; J7030; J7060

== ENCOUNTER 2020-01-22 06:58 | Emergency (ER) | payer MEDICARE ==
[~2020-01-22] VITALS: Ht 170.2 cm; Wt 113.4 kg
[~2020-01-22 06:58] MED LIST changes: +ATORVASTATIN CA40 MG PO; +BACLOFEN10 MG PO; +GABAPENTIN600 MG PO; +HYDROCHLOROTHIA25 MG PO; +NICOTINE PATCH1 EAC1 TD; +QUETIAPINE FUM200 MG PO; +QUETIAPINE FUMA25 MG PO; +TRAZODONE HCL50 MG PO
--- OUTSIDE RECORDS SUMMARY | 2020-01-22 07:00 | XMS ---
PreManage Notification: DOREEN TELLO Security Curator Of Education Events No recent Security Events currently on file CRITERIA MET - [facility] - Has Care Guidelines - History of Sepsis Dx - PDMP - [facility] - 2 Visits in 30 Days CARE PROVIDERS TAMIKA JACKSON [facility] [place] 07/29/2019-Current PHONE: [phone] MARILUZ Zamorano Physical Medicine \T\ Rehabilitation: 07/13/2019-Current Pain Medicine PHONE: Unknown Yaniv has no Care Guidelines for this patient. Care History Medical/Surgical 01/11/2020 [facility] - Care Recommendation: - PLEASE REVIEW PDMP ON THE YANIV - USE EXTREME CAUTION IN GIVING NARCOTICS. - Avoid Discharge Narcotic prescriptions if at all possible. Physician discretion. 07/29/2019 [facility] - [facility] HAS MADE SEVERAL ATTEMPTS TO CONTACT PATIENT. - PLEASE CONTACT [facility] [phone] IF PATIENT IS SEEN IN THE ED DURING THE DAY. 05/13/2019 [facility] - [facility] IS UNABLE TO CONTACT PATIENT- LEFT VOICE MESSAGES. - PATIENT NEEDS A PCP- PLEASE PROVIDE [facility] CONTACT NUMBER IF PATIENT IS SEEN IN THE ED [phone]. E.D. VISIT COUNT (12 MO.) 5 [facility] TOTAL 5 NOTE: Visits indicate total known visits. ED/C VISIT TRACKING (12 MO.) 01/22/2020 06:58 [facility] [place] TYPE: Emergency COMPLAINT: - BREATHING PROBLEM 01/09/2020 19:09 [facility] [place] TYPE: Emergency COMPLAINT: - HYPONATREMIA 07/28/2019 11:39 [facility] [place] TYPE: Emergency COMPLAINT: - MEDICATION REFILL REQUEST DIAGNOSES: - Other intermodal dispatcher (current) drug therapy - Encounter for issue of repeat prescription - Bipolar disorder, unspecified - Chronic obstructive pulmonary disease, unspecified - Nicotine dependence, cigarettes, uncomplicated - Nicotine dependence, unspecified, uncomplicated 07/12/2019 11:49 [facility] [place] TYPE: Emergency COMPLAINT: - VOMITING, MEDICATION REFILL DIAGNOSES: - skilled nursing (current) use of systemic steroids - Chronic obstructive pulmonary disease, unspecified - Encounter for issue of repeat prescription - Bipolar disorder, unspecified - Nicotine dependence, unspecified, uncomplicated - Other intermodal dispatcher (current) drug therapy 05/09/2019 12:36 [facility] [place] TYPE: Emergency COMPLAINT: - MEDICATION REFILL REQUEST DIAGNOSES: - Bipolar disorder, unspecified - Nicotine dependence, cigarettes, uncomplicated - Encounter for issue of repeat prescription - Chronic obstructive pulmonary disease, unspecified - Other intermodal dispatcher (current) drug therapy - Crohn's disease, unspecified, without complications - Nicotine dependence, unspecified, uncomplicated INPATIENT VISIT TRACKING (12 MO.) 01/10/2020 04:14 [facility] [place] TYPE: Medical Surgical COMPLAINT: - HYPONATREMIA DIAGNOSES: - Hyperuricemia without signs of inflammatory arthritis and top - Bacteremia - Fracture of one rib, right side, initial encounter for closed - Other disorders of bilirubin metabolism - Bipolar disorder, unspecified - Other jail (current) drug therapy - Chronic pain syndrome - skilled nursing (current) use of non-steroidal anti-inflammatories - Traumatic pneumothorax, initial encounter - Exposure to other specified factors, initial encounter - Respiratory failure, unspecified with hypoxia - Metabolic encephalopathy - Tobacco use - Hypokalemia - Chronic obstructive pulmonary disease, unspecified - salvage determiner (current) use of opiate analgesic - Hypo-osmolality and hyponatremia - Essential (primary) hypertension [email or web address]
== END 2020-01-22 09:45 | disposition home or self-care (01) ==
LOC: ED 06:58
DX: R07.9 Chest pain, unspecified (principal); F41.9 Anxiety disorder, unspecified; J44.9 Chronic obstructive pulmonary disease, unspecified; F31.9 Bipolar disorder, unspecified; Z87.891 Personal history of nicotine dependence; Z79.899 Other long term (current) drug therapy
CPT/HCPCS: 71046; 80053; 85025; 99285-25

== ENCOUNTER 2020-07-14 15:47 | Emergency (ER) | payer MEDICARE | END 2020-07-14 17:32 | disposition home or self-care (01) | LOC: ED 15:47 | DX: I10 Essential (primary) hypertension (principal); J44.9 Chronic obstructive pulmonary disease, unspecified; F31.9 Bipolar disorder, unspecified; F17.200 Nicotine dependence, unspecified, uncomplicated; Z79.899 Other long term (current) drug therapy ==

== ENCOUNTER 2020-09-05 14:26 | Emergency (ER) | payer MEDICARE ==
[~2020-09-05] VITALS: Ht 170.2 cm; Wt 113.4 kg
[~2020-09-05 14:26] MED LIST changes: +TOPROL XL100 MG PO
--- OUTSIDE RECORDS SUMMARY | 2020-09-05 14:28 | XMS ---
PreManage Notification: DOREEN TELLO Security Claim Processor Events No recent Security Events currently on file CRITERIA MET - [facility] - Has Care Guidelines - History of Sepsis Dx - PDMP CARE PROVIDERS [facility] 07/29/2019-Current PHONE: [phone] MARILUZ Zamorano Physical Medicine \T\ Rehabilitation: 07/13/2019-Current Pain Medicine PHONE: Unknown Guidelines [facility] Date: 01/25/2020 Care Coordination: Currently seeking mental health services through [facility]. Please contact [facility] for any mental health concerns.\T\nbsp; [place] [phone] [place] [phone] Crisis Line [phone] Care History Medical/Surgical 01/24/2020 [facility] - PATIENT IS CURRENTLY TRYING TO ESTABLISH CARE WITH VIKTOR CARBAJAL AT [facility]. - PATIENT HAS A WOUND CARE FOLLOW UP APT WITH VIKTOR CARBAJAL ON 01/24/20 @ 1: 00PM. 01/11/2020 [facility] - Care Recommendation: - PLEASE REVIEW PDMP ON THE [facility] - USE EXTREME CAUTION IN GIVING NARCOTICS. - Avoid Discharge Narcotic prescriptions if at all possible. Physician discretion. 07/29/2019 [facility] - [facility] HAS MADE SEVERAL ATTEMPTS TO CONTACT PATIENT. - PLEASE CONTACT [facility] [phone] IF PATIENT IS SEEN IN THE ED DURING THE DAY. [facility].D[facility]12 MO.) [facility] NOTE: Visits indicate total known visits. ED/UCC VISIT TRACKING (12 MO.) 09[facility]05/2020 14:26 [facility] [place] [facility] COMPLAINT: - SHORTNESS OF BREATH 07/14/2020 15:47 [facility] [place] TYPE: Emergency COMPLAINT: - MEDICATION REFILL DIAGNOSES: - Other custodial (current) drug therapy - Nicotine dependence, unspecified, uncomplicated - Bipolar disorder, unspecified - Chronic obstructive pulmonary disease, unspecified - Essential (primary) hypertension 01/22/2020 06:58 [facility] [place] TYPE: Emergency COMPLAINT: - BREATHING PROBLEM DIAGNOSES: - Chest pain, unspecified - Shortness of breath - Anxiety disorder, unspecified - Personal history of nicotine dependence - Chronic obstructive pulmonary disease, unspecified - Other custodial (current) drug therapy - Bipolar disorder, unspecified 01/09/2020 19:09 [facility] [place] TYPE: Emergency COMPLAINT: - HYPONATREMIA INPATIENT VISIT TRACKING (12 MO.) 01/10/2020 04:14 [facility] [place] TYPE: Medical Surgical COMPLAINT: - HYPONATREMIA DIAGNOSES: - Hyperuricemia without signs of inflammatory arthritis and tophaceous disease - Bacteremia - Fracture of one rib, right side, initial encounter for closed fracture - Other disorders of bilirubin metabolism - Bipolar disorder, unspecified - Other custodial (current) drug therapy - Chronic pain syndrome - terminal operations manager (current) use of non-steroidal anti-inflammatories (NSAID) - Traumatic pneumothorax, initial encounter - Exposure to other specified factors, initial encounter - Respiratory failure, unspecified with hypoxia - Metabolic encephalopathy - Tobacco use - Hypokalemia - Chronic obstructive pulmonary disease, unspecified - alf (current) use of opiate analgesic - Hypo-osmolality and hyponatremia - Essential (primary) hypertension [email or web address]
[2020-09-05] MEDS ORDERED: BUPRENORPHINE1 EAC4 TD (14:36)
[2020-09-05] MEDS ORDERED: QUETIAPINE FUM200 MG PO (14:40)
[2020-09-05] MEDS ORDERED: VENTOLIN HFA18 GM INH (15:34)
[2020-09-05] MEDS ORDERED: HYDROCHLOROTHIA25 MG PO (15:34)
[2020-09-05] MEDS ORDERED: TOPROL XL100 MG PO (15:34)
== END 2020-09-05 15:30 | disposition home or self-care (01) ==
LOC: ED 14:26
DX: Z76.0 Encounter for issue of repeat prescription (principal); J44.9 Chronic obstructive pulmonary disease, unspecified; F31.9 Bipolar disorder, unspecified; F17.200 Nicotine dependence, unspecified, uncomplicated; Z79.899 Other long term (current) drug therapy
CPT/HCPCS: 99281

== ENCOUNTER 2021-01-04 16:18 | Emergency (ER) | payer MEDICARE ==
[~2021-01-04] VITALS: Ht 170.2 cm; Wt 111.1 kg
[~2021-01-04 16:18] MED LIST changes: +BUPRENORPHINE1 EAC4 TD
--- OUTSIDE RECORDS SUMMARY | 2021-01-04 16:20 | XMS ---
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 07/29/2019-Current PHONE: [phone] MARILUZ Zamorano Physical Medicine \T\ Rehabilitation: 07/13/2019-Current Pain Medicine PHONE: Unknown [facility] Date: 01/25/2020 Care Coordination: Currently seeking mental health services through [email or web address]. Please contact [email or web address] for any mental health concerns.\T\nbsp; [place] [phone] [place] [phone] Crisis Line [phone] Care History Medical/Surgical 01/24/2020 [facility] - PATIENT IS CURRENTLY TRYING TO ESTABLISH CARE WITH VIKTOR CARBAJAL AT [facility]. - PATIENT HAS A WOUND CARE FOLLOW UP APT WITH VIKTOR CARBAJAL ON 01/24/20 @ 1: 00PM. 01/11/2020 [facility] - Care Recommendation: - PLEASE REVIEW PDMP ON THE [place] - USE EXTREME CAUTION IN GIVING NARCOTICS. - Avoid Discharge Narcotic prescriptions if at all possible. Physician discretion. 07/29/2019 [facility] - [facility] HAS MADE SEVERAL ATTEMPTS TO CONTACT PATIENT. - PLEASE CONTACT [facility] [phone] IF PATIENT IS SEEN IN THE ED DURING THE DAY. E.D. [facility] (12 MO.) [facility] NOTE: Visits indicate total known visits. ED/UCC VISIT TRACKING (12 MO.) [facility]04[facility]2021 16[facility] COMPLAINT: - MEDICATION REFILLS 09/05/2020 14:26 [facility] TYPE: Emergency COMPLAINT: - SHORTNESS OF BREATH DIAGNOSES: - Other penitentiary (current) drug therapy - Nicotine dependence, unspecified, uncomplicated - Encounter for issue of repeat prescription - Bipolar disorder, unspecified - Chronic obstructive pulmonary disease, unspecified 07/14/2020 15:47 [facility] TYPE: Emergency COMPLAINT: - MEDICATION REFILL DIAGNOSES: - Other penitentiary (current) drug therapy - Nicotine dependence, unspecified, uncomplicated - Bipolar disorder, unspecified - Chronic obstructive pulmonary disease, unspecified - Essential (primary) hypertension 01/22/2020 06:58 [facility] TYPE: Emergency COMPLAINT: - BREATHING PROBLEM DIAGNOSES: - Chest pain, unspecified - Shortness of breath - Anxiety disorder, unspecified - Personal history of nicotine dependence - Chronic obstructive pulmonary disease, unspecified - Other penitentiary (current) drug therapy - Bipolar disorder, unspecified [...] metabolism - Bipolar disorder, unspecified - 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
[2021-01-04] MEDS ORDERED: VENTOLIN HFA18 GM INH (17:30)
[2021-01-04] MEDS ORDERED: TOPROL XL100 MG PO (17:30)
[2021-01-04] MEDS ORDERED: ALBUTEROL2.5 MG/3 M INH (17:30)
[2021-01-04] MEDS ORDERED: HYDROCHLOROTHIA25 MG PO (17:30)
== END 2021-01-04 17:35 | disposition home or self-care (01) ==
LOC: ED 16:18
DX: Z76.0 Encounter for issue of repeat prescription (principal); J44.9 Chronic obstructive pulmonary disease, unspecified; I10 Essential (primary) hypertension; Z79.899 Other long term (current) drug therapy
CPT/HCPCS: 99281

== ENCOUNTER 2024-03-12 13:15 | Emergency (ER) | payer MEDICARE ==
[~2024-03-12] VITALS: Ht 170.2 cm; Wt 107.5 kg
[~2024-03-12 13:15] MED LIST changes: +PENICILLIN V P500 MG PO; +[UNRECOGNIZED DRUG - OTHER] PO
[2024-03-12] MEDS ORDERED: CLINDAMYCIN PHOSPHATE/D5W 900 MG/50 ML BAG IV ONE (13:45)
[2024-03-12] MEDS ORDERED: KETOROLAC TROMETHAMINE 30 MG/ML VIAL IV ONE (13:45)
[2024-03-12 14:01] LABS: HEMATOCRIT 39.5 % (35.0-50.0); HEMOGLOBIN 13.6 g/dL (12.0-18.0); MCH 33.6 (27-36); MCHC 34.4 g/dl (30-36); MCV 97.5 fl (81-99); PLATELET COUNT 313 K/uL (140-440); RBC 4.05 M/ul (4.3-5.7); RDW 14.1 (10.5-15.0)
[2024-03-12 14:16] LABS: ALBUMIN 2.7 g/dL (3.4-5.0); ALBUMIN/GLOBULIN RATIO 0.79 (1.1-2.4); BILIRUBIN, TOTAL 0.3 ng/dL (0.2-1.0); BUN/CREATININE RATIO 11.34 (6.0-28.6); CALCIUM 8.4 mg/dL (8.5-10.1); CREATININE, SERUM 0.97 mg/dL (0.70-1.30); PROTEIN, TOTAL 6.1 g/dL (6.4-8.2)
[2024-03-12] MEDS ORDERED: CLEOCIN HCL300 MG PO (14:16)
[2024-03-12] MEDS ORDERED: IBU800 MG PO (14:16)
[2024-03-12 14:19] LABS: BASOPHILS, MANUAL DIFF 1; LYMPHOCYTES, MANUAL DIFF 10; MONOCYTES, MANUAL DIFF 14; NEUTROPHILS, MANUAL DIFF 75
[2024-03-12] MEDS ORDERED: POTASSIUM CHLORIDE 10 MEQ TABCR PO ONE (14:30)
[2024-03-12 15:08] VITALS: BP 141/105
== END 2024-03-12 15:09 | disposition home or self-care (01) ==
LOC: ED 13:15
PROVIDERS: Internal Medicine
DX: K04.7 Periapical abscess without sinus (principal); J44.9 Chronic obstructive pulmonary disease, unspecified; Z88.5 Allergy status to narcotic agent; Z79.899 Other long term (current) drug therapy
CPT/HCPCS: 36415; 80053; 85025; 96365; 96375; 99283-25; A9270; J1885; J3490

== ENCOUNTER 2024-03-26 17:03 | Emergency (ER) | payer MEDICARE ==
[~2024-03-26] VITALS: Ht 170.2 cm; Wt 106.1 kg
[~2024-03-26 17:03] MED LIST changes: +CLEOCIN HCL300 MG PO; +IBU800 MG PO
[2024-03-26] MEDS ORDERED: CYCLOBENZAPRINE10 MG PO (18:06)
[2024-03-26] MEDS ORDERED: TRELEGY ELLIPT1 EACH INH (18:10)
[2024-03-26] MEDS ORDERED: DIVALPROEX SOD500 M1 PO (18:11)
[2024-03-26] MEDS ORDERED: AMOX TR-K CLV1 EAC1 PO (19:24)
[2024-03-26] MEDS ORDERED: AMOXICILLIN/CLAVULANATE K 875 MG TAB PO ONE (19:30)
[2024-03-26 19:32] VITALS: BP 94/73
== END 2024-03-26 19:32 | disposition home or self-care (01) ==
LOC: ED 17:03
DX: K04.7 Periapical abscess without sinus (principal); J44.9 Chronic obstructive pulmonary disease, unspecified; F31.9 Bipolar disorder, unspecified; Z88.5 Allergy status to narcotic agent; Z79.899 Other long term (current) drug therapy
CPT/HCPCS: 99283